=== PATIENT | female | born 1955 ===

== ENCOUNTER → 2021-12-13 10:16 | Outpatient (BNVA) | payer MEDICARE, OTHER, SELFPAY | PROVIDERS: PCP Internal Medicine; Visit Provider Internal Medicine Rheumatology | DX: M05.9 Rheumatoid arthritis with rheumatoid factor, unspecified (principal); M81.0 Age-related osteoporosis without current pathological fracture; M17.12 Unilateral primary osteoarthritis, left knee; K21.9 Gastro-esophageal reflux disease without esophagitis; Z79.899 Other long term (current) drug therapy | CPT/HCPCS: 99212 ==

== ENCOUNTER → 2022-04-17 09:29 | Outpatient (BNVA) | payer MEDICARE, OTHER, SELFPAY | PROVIDERS: PCP Internal Medicine; Visit Provider Internal Medicine Rheumatology | DX: M05.9 Rheumatoid arthritis with rheumatoid factor, unspecified (principal); M17.0 Bilateral primary osteoarthritis of knee; Z79.899 Other long term (current) drug therapy | CPT/HCPCS: 99212 ==

== ENCOUNTER 2022-05-14 10:38 | Outpatient (REF) | payer MEDICARE, OTHER, SELFPAY ==
[2022-05-14 11:11] LABS: MANUAL DIFF FLAG NO
[2022-05-14 11:44] LABS: Basophils Percent Auto 0.7 % (0-2); Eosinophils Absolute Auto 0.1 X10*3/uL (0.0-0.4); Eosinophils Percent Auto 1.3 % (0-4); Hematocrit 37.7 % (37.0-47.0); Hemoglobin 12.2 g/dl (12.0-16.0); Imm Gran Abs Auto 0.01 X10*3/uL (0.00-0.03); Imm Gran Pct Auto 0.2 % (0.0-0.4); Lymphocytes Absolute Auto 1.2 X10*3/uL (1.2-4.9); Lymphocytes Percent Auto 26.9 % (20-40); Mean Corpuscular HGB Conc 32.4 g/dl (31.0-35.0); Mean Corpuscular Hemoglobin 26.2 pg (27.0-33.0); Mean Corpuscular Volume 81.1 fL (80.0-98.0); Monocytes Absolute Auto 0.3 X10*3/uL (0.1-1.2); Monocytes Percent Auto 6.7 % (2-11); Neutrophils Absolute Auto 2.9 x10*3/uL (2.0-8.3); Neutrophils Percent Auto 64.2 % (45-73); Platelet Count 264 X10*3/uL (160-400); Red Blood Count 4.65 X10*6/uL (4.20-5.50); Red Cell Distribution Width 14.1 % (11.0-16.0); White Blood Count 4.5 X10*3/uL (4.8-10.8)
[2022-05-14 12:19] LABS: C Reactive Protein 0.49 mg/dL (< or = 0.50)
[2022-05-14 12:20] LABS: Erythrocyte Sedimentation Rate 29 MM/HR (0-20)
[2022-05-17 00:42] LABS: TS Negative Control Passed; TS Panel A 0; TS Panel B 0; TS Positive Control Passed; TSpotTB Negative (Negative)
== END 2022-05-14 10:39 | disposition home or self-care (01) ==
LOC: HO.LAB 10:38
PROVIDERS: PCP Internal Medicine; Visit Provider Internal Medicine Rheumatology
DX: Z11.1 Encounter for screening for respiratory tuberculosis (principal); M05.9 Rheumatoid arthritis with rheumatoid factor, unspecified; Z79.899 Other long term (current) drug therapy
CPT/HCPCS: 36415; 85025; 85652; 86140; 86481

== ENCOUNTER → 2022-10-24 08:26 | Outpatient (BNVA) | payer MEDICARE, OTHER, SELFPAY | PROVIDERS: PCP Internal Medicine; Visit Provider Internal Medicine Rheumatology | DX: M05.9 Rheumatoid arthritis with rheumatoid factor, unspecified (principal); D64.9 Anemia, unspecified; Z96.651 Presence of right artificial knee joint; Z92.89 Personal history of other medical treatment; Z79.899 Other long term (current) drug therapy | CPT/HCPCS: 36415; 85025; 85652; 86140; 99212 ==

== ENCOUNTER 2022-10-24 09:10 | Outpatient (REF) | payer MEDICARE, OTHER, SELFPAY ==
[2022-10-24 10:35] LABS: MANUAL DIFF FLAG NO
[2022-10-24 10:41] LABS: Basophils Percent Auto 0.6 % (0-2); Eosinophils Absolute Auto 0.1 X10*3/uL (0.0-0.4); Eosinophils Percent Auto 1.8 % (0-4); Imm Gran Abs Auto 0.01 X10*3/uL (0.00-0.03); Imm Gran Pct Auto 0.2 % (0.0-0.4); Lymphocytes Absolute Auto 1.7 X10*3/uL (1.2-4.9); Lymphocytes Percent Auto 34.4 % (20-40); Mean Corpuscular HGB Conc 31.4 g/dl (31.0-35.0); Mean Corpuscular Hemoglobin 25.8 pg (27.0-33.0); Mean Corpuscular Volume 82.2 fL (80.0-98.0); Mean Platelet Volume 10.5 fL (9.4-12.3); Monocytes Absolute Auto 0.3 X10*3/uL (0.1-1.2); Monocytes Percent Auto 5.8 % (2-11); Neutrophils Absolute Auto 2.9 x10*3/uL (2.0-8.3); Neutrophils Percent Auto 57.2 % (45-73); Platelet Count 325 X10*3/uL (160-400); Red Blood Count 4.26 X10*6/uL (4.20-5.50); Red Cell Distribution Width 14.6 % (11.0-16.0)
[2022-10-24 10:54] LABS: C Reactive Protein 0.42 mg/dL (< or = 0.50)
[2022-10-24 11:18] LABS: Erythrocyte Sedimentation Rate 45 MM/HR (0-20)
== END 2022-10-24 09:11 | disposition home or self-care (01) ==
LOC: HO.10HDL 09:10
PROVIDERS: Visit Provider Internal Medicine Rheumatology
DX: Z13.89 Encounter for screening for other disorder (principal)
CPT/HCPCS: 36415; 85025; 85652; 86140

== ENCOUNTER 2022-10-26 10:01 | Outpatient (REF) | payer MEDICARE, OTHER, SELFPAY ==
[2022-10-28 23:54] LABS: TS Negative Control Passed; TS Panel A 0; TS Panel B 0; TS Positive Control Passed; TSpotTB Negative (Negative)
== END 2022-10-26 10:02 | disposition home or self-care (01) ==
LOC: HO.10HDL 10:01
PROVIDERS: Visit Provider Internal Medicine Rheumatology
DX: M05.9 Rheumatoid arthritis with rheumatoid factor, unspecified (principal); Z79.899 Other long term (current) drug therapy
CPT/HCPCS: 36415; 86481

== ENCOUNTER 2023-04-24 09:31 | Outpatient (AMB) | payer MEDICARE, OTHER, SELFPAY ==
[2023-04-24 10:02] VITALS: BP 126/83; PULSE 73; RESP 17; TEMP 36.2; O2SAT 98; BMI 29.8
--- NOTE | 2023-04-24 10:02 | AM.OFFVISNUR ---
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: No Allergies amoxicillin Allergy (Intermediate, Verified 04/24/23 10:05) Rash Medication List - Last Reconciled 04/24/23 by Paty Copeland RN carboxymethylcellulose sodium 0.5% (Refresh Tears) 1 drp ophthalmic (eye) .every 2 hours cetirizine 10 mg PO DAILY cyclosporine 0.05% (Restasis) 1 drp ophthalmic (eye) Q12H ergocalciferol (vitamin D2) 1,250 mcg PO .every month etanercept (Enbrel SureClick) 50 mg subcut QWEEK ofloxacin 0.3% drps ophthalmic (eye) olopatadine 0.1% 1 drp ophthalmic (eye) .right eye omeprazole 20 mg PO BID prednisolone acetate 1% drps ophthalmic (eye) triamcinolone acetonide 0.025% 1 appl topical DAILY venlafaxine ER 300 mg PO DAILY Coding
[2023-04-24 10:14] VITALS: BMI 29.8
--- NOTE | 2023-04-24 10:14 | MHC.OFFVIS ---
Intake Vital Signs 04/24/23 10:02 04/24/23 10:14 Height 5 ft Weight 152 lb 8.958 oz BMI 29.8 29.8 BP 126/83 Position Sitting Respiration 17 Pulse 73 Pulse Source Pulse Oximeter Temp 97.2 F Temp Source Skin Pulse Oximetry (%) 98 Oxygen Delivery Method Room Air Intake Visit Reasons: ra Allergies amoxicillin Allergy (Intermediate, Verified 04/24/23 10:05) Rash Medication List - Last Reconciled 04/24/23 by Paty Copeland, RN carboxymethylcellulose sodium 0.5% (Refresh Tears) 1 drp ophthalmic (eye) .every 2 hours cetirizine 10 mg PO DAILY cyclosporine 0.05% (Restasis) 1 drp ophthalmic (eye) Q12H ergocalciferol (vitamin D2) 1,250 mcg PO .every month etanercept (Enbrel SureClick) 50 mg subcut QWEEK ofloxacin 0.3% drps ophthalmic (eye) olopatadine 0.1% 1 drp ophthalmic (eye) .right eye omeprazole 20 mg PO BID prednisolone acetate 1% drps ophthalmic (eye) triamcinolone acetonide 0.025% 1 appl topical DAILY venlafaxine ER 300 mg PO DAILY HPI HPI Comments History of Present Illness Details The patient returns for evaluation of her rheumatoid arthritis. She remains on Enbrel 50 mg weekly. In general that is working fairly well for her joint pains. She is doing much better since having the knee replacement earlier this year. She is having some dry coughing, mostly at night. This is associated with postnasal drip. She does take occasional Benadryl for this. In the past she had been on regular doses of Zyrtec. She recently had some eye surgery for a retinal hole. She is pleased with the results on that. She isstill on some eyedrops and has follow-up appointment in Ophthalmology. 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 Osteoarthritis of left knee GERD (gastroesophageal reflux disease) Depression Chronic persistent hepatitis History of positive PPD History of wrist fracture Osteoporosis Seropositive rheumatoid arthritis Surgical History (Updated 10/24/22 @ 08:39 by BRYNN Victor) Hx of hand surgery H/O total knee replacement Social History Household Members Other:: Living with sister Housing: House Are you a primary pediatric critical care nurse to a significant other at home: Yes Do you presently have visiting nurse or other home services: No 75 years or older and lives alone: No Alcohol intake: never Patient Tobacco Use Status: Never used Tobacco e-Cigarette/Vaping Use: Never Used service: No Current occupational status: retired Review of Systems Const Details: Negative for appetite change, weight change, fever, chills, malaise and fatigue Card Details: Negative chest pain, edema and syncope Resp Details: Negative for SOB, cough and wheezing GI Details: Negative indigestion/heartburn, nausea, abdominal pain, bowel changes, diarrhea, constipation and bloody stool. Skin/Breast Details: Negative for itching, rash, hives, Raynaud's symptoms, sun sensitivity, and skin cancer Psych Details: She remains on venlafaxine for her anxiety. She wants to continue it but is having difficulty obtaining a from the prior her psychiatrist apparently retired. Pierce/Lymph Details: Negative for excessive bruising or bleeding. Physical Exam Vital Signs: Last Vital Signs Temp 97.2 F 04/24/23 10:02 Pulse 73 04/24/23 10:02 Resp 17 04/24/23 10:02 BP 126/83 04/24/23 10:02 Pulse Ox 98 04/24/23 10:02 Oxygen Delivery Method Room Air 04/24/23 10:02 BMI result Body Mass Index 29.8 APPEARANCE: Patient in no acute distress . EXTREMITIES: No edema, no calf tenderness, normal peripheral pulses. SKIN: No inflammatory or neoplastic lesions. Normal color and turgor ??JOINT EXAM: Cervical Spine:.? Full range of motion without pain; no tenderness. Thoracic Spine:.? No scoliosis.? No tenderness on palpation. Lumbar Spine:.? Alignment normal.? Mild pain with extremes of flexion extension but no tenderness. Chest Wall:.? No tenderness, swelling, increased warmth or erythema. Hands:? Right:? There is thickening across the MCP joints 2 through 5.? These are not tender however.? She has some flexion deformity at the MCPs.? There is evidence for previous surgery over the 2nd and 3rd MCP region.? There is some slight thickening without tenderness at the 2nd and 3rd PIP joints.? There is no sensory loss or thenar atrophy.? Left:? Normal pain-free range of motion without tenderness, swelling, increased warmth or erythema.? No thenar atrophy or sensory loss. Wrists:? Right: no pain with flexion extension is 75 degrees and some slight dorsal tenderness but no redness or swelling.? Left:? The left wrist has been fused and there is no motion possible.? No tenderness or swelling.? Surgical scar seems well healed. Elbows:. Normal pain-free range of motion without tenderness, swelling, increased warmth or erythema. Shoulders:.?? Full range of motion without pain. No tenderness, weakness, swelling, increased warmth or erythema. Hips:.? Full range of motion without pain. Hip bursa:.? No tenderness. Knees:.? Right:? nod discomfort at full extension. She flexes beyond 100 degrees without pain. There is a large anterior well-healed scar. No tenderness or induration around the scar. Left:? Normal pain-free range of motion with mild patellofemoral crepitus and some slight medial tenderness but no effusion, soft tissue swelling, increased warmth or erythema.? Ankles:.? Normal pain-free range of motion without tenderness, swelling, increased warmth or erythema. Feet:? Normal pain-free range of motion without tenderness, swelling, increased warmth or erythema. 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 She is not having any side effects so we will continue medications as above. I told her to get back on the Zyrtec and take it on a regular basis to see if that would cut out her allergic symptoms. If those symptoms continue she would need further follow-up in primary care. We would aim to see her back in about 3 months. 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
== END 2023-04-24 10:26 | disposition home or self-care (01) ==
PROVIDERS: PCP Internal Medicine; Visit Provider Internal Medicine Rheumatology
DX: M05.79 Rheumatoid arthritis with rheumatoid factor of multiple sites without organ or systems involvement (principal); Z79.899 Other long term (current) drug therapy; Z96.651 Presence of right artificial knee joint
CPT/HCPCS: 99213

== ENCOUNTER → 2023-04-24 09:31 | Outpatient (BNVA) | payer MEDICARE, OTHER, SELFPAY | PROVIDERS: PCP Internal Medicine; Visit Provider Internal Medicine Rheumatology | DX: M05.9 Rheumatoid arthritis with rheumatoid factor, unspecified (principal); Z96.651 Presence of right artificial knee joint; Z79.899 Other long term (current) drug therapy | CPT/HCPCS: 99212 ==

== ENCOUNTER 2023-07-30 09:18 | Outpatient (AMB) | payer MEDICARE, OTHER, SELFPAY ==
[2023-07-30 09:23] VITALS: BP 108/62; PULSE 85; RESP 15; TEMP 36.4; O2SAT 97; BMI 30.3
--- NOTE | 2023-07-30 09:23 | MHC.OFFVIS ---
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: No Allergies amoxicillin Allergy (Intermediate, Verified 07/30/23 09:24) Rash Medication List - Last Reconciled 07/30/23 by Paty Copeland RN carboxymethylcellulose sodium 0.5% (Refresh Tears) 1 drp ophthalmic (eye) .every 2 hours cetirizine 10 mg PO DAILY cyclosporine 0.05% (Restasis) 1 drp ophthalmic (eye) Q12H ergocalciferol (vitamin D2) 1,250 mcg PO .every month etanercept (Enbrel SureClick) 50 mg subcut QWEEK ofloxacin 0.3% drps ophthalmic (eye) olopatadine 0.1% 1 drp ophthalmic (eye) .right eye omeprazole 20 mg PO BID prednisolone acetate 1% drps ophthalmic (eye) triamcinolone acetonide 0.025% 1 appl topical DAILY venlafaxine ER 300 mg PO DAILY HPI HPI Comments History of Present Illness Details The patient returns for evaluation of her rheumatoid arthritis. She remains on Enbrel 50 mg weekly. She continues to improve in terms of her walking after her knee replacement. She thinks otherwise joints are doing okay except for the right hand. She notes some catching and discomfort around the 4th flexor tendon and 4th finger in that hand. She has had some surgery on the palm of the hand as well as MCP joint replacements. This was done years ago I believe at [facility]. She is not sure which surgeon. I think it was probably doctor Sushant as she says he is now retired. Two or 3 days ago she was lifting some boxes and developed some right lumbar pain. She admits she was picking the box up in an awkward position because of her knee problems. The pain does not radiate down the leg. It seems to get better when she is resting. 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 There is some daytime fatigue but no daytime sleepiness. Negative for appetite change, weight change, fever, chills, malaise and fatigue Eyes Details: In March she had a right retinal hole repaired. She says vision is improving. Negative for vision change, dry eyes,headaches and dizziness Card Details: Negative chest pain, edema and syncope Resp Details: Negative for SOB, cough and wheezing GI Details: Negative indigestion/heartburn, nausea, abdominal pain, bowel changes, diarrhea, constipation and bloody stool. Psych Details: Negative for anxiety, depression and stress Pierce/Lymph Details: Negative for excessive bruising or bleeding. Physical Exam Vital Signs: Last Vital Signs Temp 97.5 F 07/30/23 09:23 Pulse 85 07/30/23 09:23 Resp 15 07/30/23 09:23 BP 108/62 07/30/23 09:23 Pulse Ox 97 07/30/23 09:23 Oxygen Delivery Method Room Air 07/30/23 09:23 BMI result Body Mass Index 30.3 APPEARANCE: Patient in no acute distress EYES no redness, pupils equal and reactive to light, eyelids normal JOINT EXAM: Cervical Spine:? Full range of motion without pain; no tenderness. Thoracic Spine:? No scoliosis.? No tenderness on palpation. Lumbar Spine:? Alignment normal.? Mild pain with flexion at 60 degrees. There is some right paraspinal muscle tenderness. No tenderness over the vertebral spines. Straight leg raising is negative. Lower extremity reflexes and strength seem normal. Chest Wall:? No tenderness, swelling, increased warmth or erythema. Hands:? Right:? There is thickening across the MCP joints 2 through 5.? There is some mild tenderness along the 4th flexor tendon where there is some scar tissue. I believe is also been some surgery scars on the palm of the hand in that region. There is no fluctuance or redness. There is no tenderness over the dorsum of the MCPs but there is some ulnar deviation and flexion deformity evident.? There is some slight thickening without tenderness at the 2nd and 3rd PIP joints.? There is no sensory loss or thenar atrophy.? Left:? Normal pain-free range of motion without tenderness, swelling, increased warmth or erythema.? No thenar atrophy or sensory loss. Wrists:? Right: no pain with flexion extension is 75 degrees and some slight dorsal tenderness but no redness or swelling.? Left:? The left wrist has been fused and there is no motion possible.? No tenderness or swelling.? Surgical scar seems well healed. Elbows:. Normal pain-free range of motion without tenderness, swelling, increased warmth or erythema. Shoulders:.?? Full range of motion without pain. No tenderness, weakness, swelling, increased warmth or erythema. Hips:.? Full range of motion without pain. Hip bursa:.? No tenderness. Knees:.? Right:? Slight discomfort at full extension. She flexes beyond 100 degrees without pain. There is a large anterior well-healed scar. No tenderness or induration around the scar. Left:? Normal pain-free range of motion with mild patellofemoral crepitus and some slight medial tenderness but no effusion, soft tissue swelling, increased warmth or erythema.? Ankles:.? Normal pain-free range of motion without tenderness, swelling, increased warmth or erythema. Feet:? Normal pain-free range of motion without tenderness, swelling, increased warmth or erythema. ? 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 I think the discomfort at the right hand could be from some flexor tenosynovitis or scar tissue from previous surgery. I encouraged her to follow up with the previous surgical group that had worked on her hand. I will request a referral to [facility]. She has some lumbar pain that sounds like a muscle injury. Acetaminophen and local heat are recommended. She seems to be tolerating the Enbrel and it is helping so we will continue as above. CBC and acute phase reactants are requested. A follow-up in 4 or 5 months is recommended. Orders: Orders Erythrocyte Sedimentation Rate Today M05.9 - Rheumatoid arthritis with rheumatoid factor, unspecified, Z79.899 - Other [facility] (current) drug therapy C Reactive Protein Today M05.9 - Rheumatoid arthritis with rheumatoid factor, unspecified, Z79.899 - Other technician terminal and repeater (current) drug therapy Complete Blood Count Auto Diff Today M05.9 - Rheumatoid arthritis with rheumatoid factor, unspecified, Z79.899 - Other technician terminal and repeater (current) drug therapy Referrals Orthopedics Referral M05.9 - Rheumatoid arthritis with rheumatoid factor, unspecified, Z98.890 - Other specified postprocedural states Coding Level of Care Code Est Pt Level 3 (82231) Diagnoses Hx of hand surgery Z98.890 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
== END 2023-07-30 10:24 | disposition home or self-care (01) ==
PROVIDERS: PCP Internal Medicine; Visit Provider Internal Medicine Rheumatology
DX: M05.79 Rheumatoid arthritis with rheumatoid factor of multiple sites without organ or systems involvement (principal); Z98.890 Other specified postprocedural states; Z79.899 Other long term (current) drug therapy
CPT/HCPCS: 99213

== ENCOUNTER → 2023-07-30 09:18 | Outpatient (BNVA) | payer MEDICARE, OTHER, SELFPAY | PROVIDERS: PCP Internal Medicine; Visit Provider Internal Medicine Rheumatology | DX: M05.9 Rheumatoid arthritis with rheumatoid factor, unspecified (principal); Z98.890 Other specified postprocedural states; Z79.899 Other long term (current) drug therapy | CPT/HCPCS: 99212 ==

== ENCOUNTER 2023-10-31 09:11 | Outpatient (AMB) | payer MEDICARE, OTHER, SELFPAY ==
[2023-10-31 09:39] VITALS: BP 120/80; PULSE 84; TEMP 36.2; O2SAT 95; BMI 30.4
--- NOTE | 2023-10-31 09:39 | A.OFFVIS_ITS ---
Intake Vital Signs 10/31/23 09:39 Height 5 ft Weight 155 lb 6.814 oz BMI 30.4 BP 120/80 Blood Pressure Location Rt brachial Position Sitting Pulse 84 Pulse Source Pulse Oximeter Temp 97.2 F Temp Source Skin Pulse Oximetry (%) 95 Oxygen Delivery Method Room Air Intake Visit Reasons: RA/CONFIRMED Intake Note: Patient last seen 07/30/[address] Daniel, presents today for follow up and test results. 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 She remains on Enbrel 50 mg weekly. She continues to improve in terms of her walking after her knee replacement and now she does not use her cane. She thinks otherwise joints are doing okay except for the 4th finger on right hand. She notes some catching and discomfort around the 4th flexor tendon and 4th finger in that hand. She has had some surgery on the palm of the hand as well as MCP joint replacements. This was done years ago but she is not sure which surgeon. She has not bothered too much by her hand or her lower back pain. She keeps very active and does not let the discomfort hinder her from her ADLs or doing what she wants to do. 07/30/2023 Dr. Daniel: The patient returns for evaluation of her rheumatoid arthritis. She remains on Enbrel 50 mg weekly. She continues to improve in terms of her walking after her knee replacement. She thinks otherwise joints are doing okay except for the right hand. She notes some catching and discomfort around the 4th flexor tendon and 4th finger in that hand. She has had some surgery on the palm of the hand as well as MCP joint replacements. This was done years ago I believe at [facility]. She is not sure which surgeon. I think it was probably doctor Canchola as she says he is now retired. Two or 3 days ago she was lifting some boxes and developed some right lumbar pain. She admits she was picking the box up in an awkward position because of her knee problems. The pain does not radiate down the leg. It seems to get better when she is resting. [facility] Medical History (Updated 10/31/23 @ 09:54 by RONY Caal-BC) Hypovitaminosis D intermediate current use of immunosuppressive drug Osteoarthritis of left knee GERD (gastroesophageal reflux disease) Depression Chronic persistent hepatitis History of positive PPD History of wrist fracture Osteoporosis Seropositive rheumatoid arthritis Surgical History Hx of hand surgery H/O total knee replacement Social History Household Members Other:: Living with sister Housing: House Are you a primary occasional caregiver to a significant other at home: Yes Do you presently have visiting nurse or other home services: No 75 years or older and lives alone: No Alcohol intake: never Patient Tobacco Use Status: Never used Tobacco e-Cigarette/Vaping Use: Never Used service: No Current occupational status: retired Review of Systems Const All systems reviewed & are unremarkable except as noted in HPI and below Physical Exam Vital Signs: Last Vital Signs Temp 97.2 F 10/31/23 09:39 Pulse 84 10/31/23 09:39 BP 120/80 10/31/23 09:39 Pulse Ox 95 10/31/23 09:39 Oxygen Delivery Method Room Air 10/31/23 09:39 BMI result Body Mass Index 30.4 APPEARANCE: Patient in no acute distress EYES no redness, pupils equal and reactive to light, eyelids normal JOINT EXAM: Cervical Spine:? Full range of motion without pain; no tenderness. Thoracic Spine:? No scoliosis.? No tenderness on palpation. Lumbar Spine:? Alignment normal.? Mild pain with flexion at 60 degrees. There is some right paraspinal muscle tenderness. No tenderness over the vertebral spines. Straight leg raising is negative. Lower extremity reflexes and strength seem normal. Chest Wall:? No tenderness, swelling, increased warmth or erythema. Hands:? Right:? There is thickening across the MCP joints 2 through 5.? There is some mild tenderness along the 4th flexor tendon where there is some scar tissue. There is surgical scars on the palm of the hand in that region. There is no fluctuance or redness. There is no tenderness over the dorsum of the MCPs but there is some ulnar deviation and flexion deformity evident.? There is some slight thickening without tenderness at the 2nd and 3rd PIP joints.? There is no sensory loss or thenar atrophy.? Left:? Normal pain-free range of motion without tenderness, swelling, increased warmth or erythema.? No thenar atrophy or sensory loss. Wrists:? Right: no pain with flexion extension is 75 degrees and some slight dorsal tenderness but no redness or swelling.? Left:? The left wrist has been fused and there is no motion possible.? No tenderness or swelling.? Surgical scar seems well healed. Elbows:. Normal pain-free range of motion without tenderness, swelling, increased warmth or erythema. Shoulders:.?? Full range of motion without pain. No tenderness, weakness, swelling, increased warmth or erythema. Hips:.? Full range of motion without pain. Hip bursa:.? No tenderness. Knees:.? Right:? Occasional discomfort at full extension. She flexes beyond 100 degrees without pain. There is a large anterior well-healed scar. No tenderness or induration around the scar. Left:? Normal pain-free range of motion with mild patellofemoral crepitus and some slight medial tenderness but no effusion, soft tissue swelling, increased warmth or erythema.? Ankles:.? Normal pain-free range of motion without tenderness, swelling, increased warmth or erythema. Feet:? Normal pain-free range of motion without tenderness, swelling, increased warmth or erythema. ? Results Reviewed Results Reviewed: Laboratory Tests 10/24/22 09:14 WBC 5.0 Hgb 11.0 L ESR 45 H C-Reactive Protein 0.42 10/18/2023: CRP 0.48 SED rate 62 - Respiratory infection last three weeks. 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 There is no discomfort at the right hand but the 4th finger sometimes gets stuck but it does not impair function per patient. This is possibly from scar tissue from previous surgery. She is not eager to follow up with the previous surgical group at this time. From prior labs from October 2022 she had a sed rate of 45 which is now increased to 62 on 10/18/2023. Patient said she has not taken her Enbrel for the last 3 weeks given a respiratory illness. She will restart next week. Other than the she seems to be tolerating the Enbrel and it is helping so we will continue Enbrel 50 mg weekly. # hypovitaminosis D: I think her vitamin-D levels are now adequate and she can go on a lower daily amount for maintenance so I will give a new prescription. #intermission coordinator use: She denies current respiratory infections. She says this is once in a while cold. We will repeat monitoring labs for CBC and acute phase reactants 1 week before her next visit follow-up in 4 months I spent 25 minutes reviewing history evaluating patient and documenting. Orders: Orders Erythrocyte Sedimentation Rate Today E55.9 - Vitamin D deficiency, unspecified, M05.9 - Rheumatoid arthritis with rheumatoid factor, unspecified, Z79.899 - Other retirement (current) drug therapy Complete Blood Count Auto Diff Today E55.9 - Vitamin D deficiency, unspecified, M05.9 - Rheumatoid arthritis with rheumatoid factor, unspecified, Z79.899 - Other retirement (current) drug therapy Comprehensive Met. Panel Today E55.9 - Vitamin D deficiency, unspecified, M05.9 - Rheumatoid arthritis with rheumatoid factor, unspecified, Z79.899 - Other intermission coordinator (current) drug therapy C Reactive Protein Today E55.9 - Vitamin D deficiency, unspecified, M05.9 - Rheumatoid arthritis with rheumatoid factor, unspecified, Z79.899 - Other retirement (current) drug therapy Medications: New cholecalciferol (vitamin D3) 50 mcg PO DAILY 90 caps 1RF E55.9 - Vitamin D deficiency, unspecified Coding Level of Care Code Est Pt Level 3 (19179) Diagnoses Hx of hand surgery Z98.890 intermediate current use of immunosuppressive drug Z79.899 Seropositive rheumatoid arthritis M05.9 Hypovitaminosis D E55.9
== END 2023-10-31 10:13 | disposition home or self-care (01) ==
PROVIDERS: PCP Internal Medicine; Visit Provider Nurse Practitioner Family
DX: M05.79 Rheumatoid arthritis with rheumatoid factor of multiple sites without organ or systems involvement (principal); Z79.899 Other long term (current) drug therapy; E55.9 Vitamin D deficiency, unspecified
CPT/HCPCS: 99214

== ENCOUNTER → 2023-10-31 09:11 | Outpatient (BNVA) | payer MEDICARE, OTHER, SELFPAY | PROVIDERS: PCP Internal Medicine; Visit Provider Nurse Practitioner Family | DX: M05.9 Rheumatoid arthritis with rheumatoid factor, unspecified (principal); E55.9 Vitamin D deficiency, unspecified; Z98.890 Other specified postprocedural states; Z79.899 Other long term (current) drug therapy | CPT/HCPCS: 99212 ==

== ENCOUNTER 2024-03-16 08:27 | Outpatient (AMB) | payer MEDICARE, OTHER, SELFPAY ==
[2024-03-16 08:29] VITALS: BP 122/68; PULSE 88; O2SAT 98; BMI 29.7
--- NOTE | 2024-03-16 08:29 | MHC.OFFVIS ---
Vital Signs 03/16/24 08:29 Height 5 ft Weight 151 lb 14.376 oz BMI 29.7 BP 122/68 Blood Pressure Location Lt brachial Position Sitting Pulse 88 Pulse Source Pulse Oximeter Pulse Oximetry (%) 98 Oxygen Delivery Method Room Air Intake Visit Reasons: RA/Labs before next visit/LM Intake Note: Patient is here for follow up on RA She got her labs done in [place], we have not got the labs yet. I will call. Allergies amoxicillin Allergy (Intermediate, Verified 03/16/24 08:35) Rash Medication List - Last Reconciled 03/16/24 by Sera Barrios MD carboxymethylcellulose sodium 0.5% (Refresh Tears) 1 drp ophthalmic (eye) .every 2 hours cetirizine 10 mg PO DAILY cholecalciferol (vitamin D3) 50 mcg PO DAILY cyclobenzaprine 5 - 10 mg (0.5 - 1 x 10 mg) PO Q8H PRN cyclosporine 0.05% (Restasis) 1 drp ophthalmic (eye) Q12H ergocalciferol (vitamin D2) 1,250 mcg PO .every month etanercept (Enbrel SureClick) 50 mg subcut QWEEK ofloxacin 0.3% drps ophthalmic (eye) olopatadine 0.1% 1 drp ophthalmic (eye) .right eye omeprazole 20 mg PO BID prednisolone acetate 1% drps ophthalmic (eye) triamcinolone acetonide 0.025% 1 appl topical DAILY venlafaxine ER 300 mg PO DAILY HPI Comments Details: This is a 68-year-old female with seropositive deforming RA who presents for follow-up. She remains on Enbrel weekly. She states that she is doing about the same overall. No he has joint pain or swelling. She gets minimal pain at the back of her right ankle when she presses it but it is very minimal without swelling. Denies any recent illnesses. She states that her sleep has not been great, she sleeps for 2 hours then wakes up. She used to see a therapist and a psychiatrist regularly in the past at [place], but there were no longer any specialists at [place] and she has not been able to see a therapist or a psychiatrist since then. [facility] Medical History Hypovitaminosis D [facility] current use of immunosuppressive drug Osteoarthritis of left knee GERD (gastroesophageal reflux disease) Depression Chronic persistent hepatitis History of positive PPD History of wrist fracture Osteoporosis Seropositive rheumatoid arthritis Surgical History Hx of hand surgery H/O total knee replacement Social History Household Members Other:: Living with sister Housing: House Are you a primary respiratory care instructor to a significant other at home: Yes Do you presently have visiting nurse or other home services: No 75 years or older and lives alone: No Alcohol intake: never Patient Tobacco Use Status: Never used Tobacco e-Cigarette/Vaping Use: Never Used service: No Current occupational status: retired Review of Systems Musc Reports arthralgias, Denies joint swelling and Denies stiffness Physical Exam Vital Signs: Last Vital Signs Pulse 88 03/16/24 08:29 BP 122/68 03/16/24 08:29 Pulse Ox 98 03/16/24 08:29 Oxygen Delivery Method Room Air 03/16/24 08:29 BMI result Body Mass Index 29.7 Const General: cooperative, healthy appearing and comfortable Nutritional Appearance: overweight Orientation/consciousness: patient oriented x3 Limitations: no limitations HEENT Head: Yes normocephalic and Yes atraumatic Mouth: moist mucous membranes Resp Effort & Inspection: normal respiratory effort and able to speak in complete sentences Auscultation: clear to auscultation bilaterally Cardio Rate: regular rate Skin General skin exam: no rashes or lesions noted Neuro General: patient oriented x3 Extrem Other: Hands: Right, There is thickening across the MCP joints 2 through 5.? There is some mild tenderness along the 4th flexor tendon where there is some scar tissue. There is surgical scars on the palm of the hand in that region. There is no fluctuance or redness. There is no tenderness over the dorsum of the MCPs but there is some ulnar deviation and flexion deformity evident.? There is some slight thickening without tenderness at the 2nd and 3rd PIP joints.? There is no sensory loss or thenar atrophy.? Left:? Normal pain-free range of motion without tenderness, swelling, increased warmth or erythema.? No thenar atrophy or sensory loss. Wrists:? Right: no pain with flexion extension is 75 degrees and some slight dorsal tenderness but no redness or swelling.? Left:? The left wrist has been fused and there is no motion possible.? No tenderness or swelling.? Surgical scar seems well healed. Normal range of motion of elbows and shoulders without pain No ankle swelling or tenderness bilaterally Negative MTP squeeze test bilaterally No active synovitis otherwise Assessment & Plan Assessment & Plan (1) Seropositive rheumatoid arthritis: Comment: Did MTX prior 2012 - Enbrel started 06/30: R 3- MCP implants Code(s): M05.9 - Rheumatoid arthritis with rheumatoid factor, unspecified Category: Medical Plan: This is a 68-year-old female with seropositive deforming RA who presents for follow-up. This is her 1st visit with me. She used to follow-up with Dr. Daniel. She remains on Enbrel 50 mg weekly. 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 Patient fully aware. Advised patient to seek medical care [facility] if patient has an infection and advised patient to stop the medication until the infection is resolved. Plan I spent 24 minutes reviewing patient's chart, evaluating patient, ordering diagnostic workup, counseling patient and documenting in the chart Orders: Orders Erythrocyte Sedimentation Rate 6 Months M05.9 - Rheumatoid arthritis with rheumatoid factor, unspecified Hepatitis A,B,C Profile 6 Months Z11.59 - Encounter for screening for other viral diseases Complete Blood Count Auto Diff 6 Months M05.9 - Rheumatoid arthritis with rheumatoid factor, unspecified Comprehensive Met. Panel 6 Months M05.9 - Rheumatoid arthritis with rheumatoid factor, unspecified C Reactive Protein 6 Months M05.9 - Rheumatoid arthritis with rheumatoid factor, unspecified T Spot TB 6 Months Z11.7 - Encounter for testing for latent tuberculosis infection Cyclic Citrullinated Peptide 6 Months M05.9 - Rheumatoid arthritis with rheumatoid factor, unspecified Coding Level of Care Code Est Pt Level 4 (85242) Diagnoses Seropositive rheumatoid arthritis M05.9 [facility] current use of immunosuppressive drug Z79.899
== END 2024-03-16 09:06 | disposition home or self-care (01) ==
PROVIDERS: PCP Internal Medicine; Visit Provider Student in an Organized Health Care Education/Training Program
DX: M05.79 Rheumatoid arthritis with rheumatoid factor of multiple sites without organ or systems involvement (principal); Z79.899 Other long term (current) drug therapy
CPT/HCPCS: 99214

== ENCOUNTER → 2024-03-16 08:27 | Outpatient (BNVA) | payer MEDICARE, OTHER, SELFPAY | PROVIDERS: PCP Internal Medicine; Visit Provider Student in an Organized Health Care Education/Training Program | DX: M05.9 Rheumatoid arthritis with rheumatoid factor, unspecified (principal); Z11.7 Encounter for testing for latent tuberculosis infection; Z11.59 Encounter for screening for other viral diseases; Z79.899 Other long term (current) drug therapy | CPT/HCPCS: 99212 ==

== ENCOUNTER 2024-12-15 07:56 | Outpatient (AMB) | payer MEDICARE, OTHER, SELFPAY ==
--- OUTSIDE RECORDS SUMMARY | 2024-12-15 08:00 | XMS_ITS ---
Author Name [facility] Organization Unknown History of Medication Use Medication Directions Dispensed Refills Start Date End Date [facility] clindamycin HCl 300 mg capsule TAKE 2 CAPSULES BY MOUTH 1 HOUR PRIOR TO DENTAL APPOINTMENT 4 completed acetaminophen 500 mg tablet TAKE TWO TABLETS BY MOUTH THREE TIMES A DAY 3 completed acetaminophen 500 mg tablet TAKE TWO TABLETS BY MOUTH THREE TIMES A DAY 3 completed clindamycin HCl 150 mg capsule TAKE 1 CAPSULE BY MOUTH EVERY 6 HOURS FOR 7 DAYS 3 completed gabapentin 300 mg capsule TAKE ONE CAPSULE BY MOUTH EVERY EVENING AT BEDTIME NEEDED 3 completed gabapentin 300 mg capsule TAKE ONE CAPSULE BY MOUTH EVERY EVENING AT BEDTIME NEEDED 3 completed ibuprofen 800 mg tablet TAKE 1 TABLET BY MOUTH EVERY 8 HOURS NEEDED FOR PAIN. MAX 4 TABLETS PER 24 HOURS 3 completed ibuprofen 800 mg tablet TAKE 1 TABLET BY MOUTH EVERY 8 HOURS NEEDED FOR PAIN. MAX 4 TABLETS PER 24 HOURS 3 completed Jantoven 1 mg tablet TAKE 6 TABLETS BY MOUTH EVERY DAY OR DIRECTED BY PHYSICIAN 3 completed ofloxacin 0.3 % eye drops INSTILL 1 DROP INTO THE RIGHT EYE 4 TIMES DAILY STARTING THREE DAYS PRIOR TO SURGERY AND CONTINUING 3 active prednisolone acetate 1 % eye drops,suspension INSTILL 1 DROP IN THE RIGHT EYE 1 TO 2 TIMES DAILY 3 active Stool Softener-Stimulant Laxative 8.6 mg-50 mg tablet TAKE TWO TABLETS BY MOUTH AT BEDTIME 3 completed Stool Softener-Stimulant Laxative 8.6 mg-50 mg tablet TAKE TWO TABLETS BY MOUTH AT BEDTIME 3 completed triamcinolone acetonide 0.025 % topical cream APPLY TO ARMS, TRUNK AND LEGS TWICE NEEDED FOR PRURITIS, DECREASE TO DAILY OR EVERY OTHER DAY SYMPTOMS IMPROVE 3 completed cyclobenzaprine 5 mg tablet TAKE ONE TABLET BY MOUTH THREE TIMES A DAY NEEDED FOR MUSCLE SPASMS active Enbrel SureClick 50 mg/mL (1 mL) subcutaneous pen injector 1 mL every week by sub-q route. active meloxicam 15 mg tablet TAKE ONE TABLET BY MOUTH EVERY DAY AFTER MEALS active ondansetron 8 mg disintegrating tablet DISSOLVE ONE TABLET BY MOUTH EVERY 8 HOURS NEEDED FOR NAUSEA AND VOMITING active prednisolone acetate 1 % eye drops,suspension 4 drops 4 times a day by ophthalmic route. active Allergies Allergen Reaction Severity Comment Documented Date Source Statu s AMOXICILLIN [facility] Problems Problem Status Onset Date Problem Type Date of Resoluti on Source History of right total knee replacement active 2023-04-29 ProblemAct [facility] Spasm active 2022-11-22 ProblemAct [facility] Ankle pain active 2024-08-13 ProblemAct [facility] E[facility] Postoperative pain active 2022-11-22 ProblemAct [facility] Right Achilles tendinitis active 2024-07-23 ProblemAct [facility] Encounters Encounter Type Encounter Reason Primary Diagnosis Location Date Ambulatory [facility] [place] 12/04/2024 Ambulatory [facility] [place] 11/09/2024 Ambulatory [facility] [place] 10/16/2024 Ambulatory [facility] [place] 10/05/2024 Amb[facility] [place] 09/11/2024 Amb[facility] [place] 08/28/2024 Ambulatory [facility] [place] 08/14/2024 Ambulatory [facility] [place] 08/13/2024 Ambulatory [facility] [place] 08/08/2024 Ambulatory [facility] [place] 08/07/2024 Ambulatory [facility] [place] 07/24/2024 Ambulatory [facility] [place] 07/23/2024 Ambulatory [facility] [place] 07/23/2024 Ambulatory [facility] [place] 07/23/2024 Ambulatory [facility] [place] 07/23/2024 [facility] [place] 07/02/2024 Amb[facility] [place] 07/02/2024 Ambulatory [facility] [place] 07/02/2024 Ambulatory [facility] [place] 07/02/2024 Ambulatory [facility] [place] 07/02/2024 Ambulatory [facility] [place] 03/08/2024 Ambulatory [facility] [place] 02/02/2024 Ambulatory [facility] [place] 11[facility]21/2023 Ambulatory [facility] [place] 11/20/2023 Ambulatory [facility] [place] 11/20/2023 Ambulatory [facility] [place] 11/20/2023 Ambulatory [facility] [place] 04/29/2023 Amb[facility] [place] 04/29/2023 Ambulatory [facility] [place] 03/28/2023 Ambulatory [facility] [place] 03/28/2023
--- OUTSIDE RECORDS SUMMARY | 2024-12-15 08:00 | XMS_ITS | Clinical Summary ---
Author Organization [facility] Address [address] [place] [address] Care Team Providers Care Manager Steel Name Role Phone Heather Luke MD Primary Care Provider [phone] Allergies Active Allergy Reactions Criticality Noted Date Comments Amoxicillin 04/20/2022 Medications Medication Sig Dispensed Refills Start Date End Date Status omeprazole (PriLOSEC) 20 MG capsule Take 20 mg by mouth 2 (two) times a day. 0 03/30/2022 Active ergocalciferol (VITAMIN D2) capsule 19931 units TAKE ONE CAPSULE BY MOUTH EVERY 28 DAYS 0 06/16/2022 Active Enbrel SureClick 50 MG/ML SOAJ 0 07/31/2022 Active venlafaxine (EFFEXOR-XR) 150 MG 24 hr capsule Take 1 capsule (150 mg total) by mouth 2 (two) times a day. 0 06/27/2022 Active clindamycin (CLEOCIN) 300 MG capsule Take 2 capsules 1 hour Prior to dental appointment 10 capsule 1 09/18/2022 Active acetaminophen (TYLENOL EXTRA STRENGTH) 500 MG tablet Take 2 tablets (1,000 mg total) by mouth 3 (three) times a day. 0 09/28/2017 Active ondansetron (ZOFRAN-ODT) 8 MG disintegrating tablet DISSOLVE ONE TABLET BY MOUTH EVERY 8 HOURS NEEDED FOR NAUSEA AND VOMITING 0 09/05/2022 Active warfarin (Jantoven) 1 MG tablet Take 6 tabs daily or as directed by physician 80 tablet 1 09/18/2022 Active gabapentin (NEURONTIN) 300 MG capsule Take 1 capsule (300 mg total) by mouth every night at bedtime as needed. 30 capsule 0 10/01/2022 Active methocarbamol (ROBAXIN) 750 MG tablet Take 1 tablet (750 mg total) by mouth 3 (three) times a day. 90 tablet 0 10/01/2022 Active oxyCODONE (ROXICODONE) 5 MG immediate release tablet 1-2 tabs p.o. every 6-8 hours as needed for pain. May fill for lesser quantity 30 tablet 0 10/02/2022 Active Active Problems Problem Noted Date Diagnosed Date Arthritis of knee, right 04/20/2022 Family History Medical History Relation Name Comments Diabetes Mother Relation Name Status Comments Mother Social History Tobacco Use Types Packs/Day Years Used Date Smoking Tobacco: Never Assessed Tobacco Cessation:Counseling Given: Not Answered Sex and Gender Information Value Date Recorded Sex Assigned at Not on file Gender Identity Not on file Sexual Orientation Not on file Job Start Date Occupation Industry Not on file Not on file Not on file Last Filed Vital Signs Vital Sign Reading Time Taken Comments Blood Pressure - - Pulse - - Temperature - - Respiratory Rate - - Oxygen Saturation - - Inhaled Oxygen Concentration - - Weight 68.5 kg (151 lb) 04/20/2022 10:24 AM EDT Height 152.4 cm (5') 04/20/2022 10:24 AM EDT Body Mass Index 29.49 04/20/2022 10:24 AM EDT Plan of Treatment Health Maintenance Due Date Last Done Comments Hepatitis C Screening 1954 Depression Screening 1966 Preventative Health Evaluation 1972 Colon Cancer Screening (Colonoscopy) 1999 Breast Cancer Screening (Mammogram) 2004 Shingrix-Zoster Vaccine (1 of 2) 2004 Fall Risk Assessment 2019 Osteoporosis Screening (DEXA Scan) 2019 Pneumococcal Vaccine (3 of 3 - PPSV23 or PCV20) 06/06/2023 06/06/2018, 04/25/2017 COVID-19 Vaccine (3 - season) 2024 05/05/2021, 04/14/2021 Influenza Vaccine (#1) 2024 , 04/27/2019, 06/06/2018, Additional history exists DTap / Tdap / Td (3 - Td or Tdap) 04/27/2029 04/27/2019, 12/06/2008 RSV Adult > 60+ Yrs or (1 - 1-dose 75+ series) 2029 Hepatitis B Vaccines Aged Out No long er eligible based on patient's age to complete this topic RSV Ped < 20 months Aged Out No longe r eligible based on patient's age to complete this topic Care Teams Manager Steel Relationship Specialty Start Date End Date Heather Luke MD PCP - General Internal Medicine 04/20/22
--- NOTE | 2024-12-15 08:01 | MHC.OFFVIS ---
Vital Signs 12/15/24 08:03 Height 5 ft Weight 155 lb 13.869 oz BMI 30.4 BP 110/76 Blood Pressure Location Rt brachial Position Sitting Pulse 79 Pulse Oximetry (%) 97 Intake Visit Reasons: RA Intake Note: Patient is here for follow up on RA. waiting for labs from [facility]. Accompanied by: Self / Same As Patient Allergies amoxicillin Allergy (Intermediate, Verified 12/15/24 08:02) Rash HPI HPI RA: Details: No flares. No recent infections. She had cataract surgery and cornea repai 4 years agor. She has chronic dry eyes affecting right eye and sees [facility] [place]. Doing well. She has her usual aches and pains. MS none. 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 Osteoarthritis of left knee GERD (gastroesophageal reflux disease) Depression Chronic persistent hepatitis History of positive PPD History of wrist fracture Osteoporosis Seropositive rheumatoid arthritis Surgical History Hx of hand surgery H/O total knee replacement Social History Household Members Other:: Living with sister Housing: House Are you a primary infant caregiver to a significant other at home: Yes Do you presently have visiting nurse or other home services: No 75 years or older and lives alone: No Alcohol intake: never Patient Tobacco Use Status: Never used Tobacco e-Cigarette/Vaping Use: Never Used service: No Current occupational status: retired Physical Exam Vital Signs: Last Vital Signs Pulse 79 12/15/24 08:03 BP 110/76 12/15/24 08:03 Pulse Ox 97 12/15/24 08:03 BMI result Body Mass Index 30.4 Const Other: General: Comfortable CVS: RRR Respiratory: clear to auscultation bilaterally. Good respiratory effort Skin: No lesions seen MSK: Volar subluxation of MCPs. No synovitis. Normal range of motion of upper extremity and lower extremities. No MTP tenderness Assessment & Plan Assessment & Plan (1) Seropositive rheumatoid arthritis: Comment: In clinical remission on Enbrel. Rheumatology history. Seropositive RA. History of prior use of methotrexate. Enbrel started 2012 till present. 06/30: R 3- MCP implants. Fused left wrist before 2020. 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: Code(s): Z79.899 - Other assisted (current) drug therapy Category: Medical Plan: As above Orders: Orders Erythrocyte Sedimentation Rate Today M05.9 - Rheumatoid arthritis with rheumatoid factor, unspecified, Z79.899 - Other assisted (current) drug therapy Hepatitis B,C Profile Today M05.9 - Rheumatoid arthritis with rheumatoid factor, unspecified, Z79.899 - 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 Complete Blood Count Man Dif Today M05.9 - Rheumatoid arthritis with rheumatoid factor, unspecified, Z79.899 - Other assisted (current) drug therapy Alanine Aminotransferase Today M05.9 - Rheumatoid arthritis with rheumatoid factor, unspecified, Z79.899 - 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 Aspartate Amino Transferase Today M05.9 - Rheumatoid arthritis with rheumatoid factor, unspecified, Z79.899 - Other assisted (current) drug therapy Creatinine Today M05.9 - Rheumatoid arthritis with rheumatoid factor, unspecified, Z79.899 - 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
[2024-12-15 08:03] VITALS: BP 110/76; PULSE 79; O2SAT 97; BMI 30.4
== END 2024-12-15 08:30 | disposition home or self-care (01) ==
LOC: HO.RHES 07:57
PROVIDERS: PCP Internal Medicine; Visit Provider Internal Medicine Rheumatology
DX: M05.9 Rheumatoid arthritis with rheumatoid factor, unspecified (principal); Z79.899 Other long term (current) drug therapy
CPT/HCPCS: 99214; G2211

== ENCOUNTER 2024-12-15 07:56 | Outpatient (REF) | payer MEDICARE, OTHER, SELFPAY ==
--- OUTSIDE RECORDS SUMMARY | 2024-12-15 09:04 | XMS_ITS | Clinical Summary ---
Author Organization [facility] [address] [place] [address] [place] [phone] Phone Care Team Providers Care Starch And Prosize Mixer Name Role Phone Heather Luke MD Primary Care Provider [phone] Allergies Active Allergy Reactions Criticality Noted Date Comments Amoxicillin Hives 03/18/2020 Bacterial infection Medications cholecalciferol (VITAMIN D-3) 50 mcg (2,000 unit) capsule TAKE ONE CAPSULE BY MOUTH EVERY DAY 4 Active etanercept (EnbreL SureClick) 50 mg/mL (1 mL) injection pen Inject 50 mg as directed every 7 days. 1 Active venlafaxine XR (EFFEXOR-XR) 150 mg 24 hr capsule Take 1 capsule (150 mg total) by mouth 2 (two) times a day. 180 capsule 1 5 Active omeprazole (PriLOSEC) [address] capsule Take 1 capsule (20 mg total) by mouth 2 (two) times a day. 180 capsule 1 5 Active omeprazole (PriLOSEC) [address] capsule TAKE ONE CAPSULE BY MOUTH TWICE A DAY 180 capsule 1 4 12/09/19 25 Discontinu ed(Reorder ) venlafaxine XR (EFFEXOR-XR) 150 mg 24 hr capsule TAKE ONE CAPSULE BY MOUTH TWICE A DAY 180 capsule 4 12/09/19 25 Discontinu ed(Reorder ) Active Problems Problem Noted Date Diagnosed Date Left wrist pain 12/09/2024 Pain from implanted hardware 12/07/2024 Obesity (BMI 30.0-34.9) 09/25/2023 Total knee replacement status 09/12/2022 Overview (07/24/2024): 09/03 right TKR Prediabetes 08/22/2022 Assessment & Plan (12/08/2024 11:58 AM EDT): Orders: Hemoglobin A1c; Future Vitamin D deficiency 03/30/2022 Assessment & Plan (12/08/2024 11:58 AM EDT): Orders: Vitamin D 25 hydroxy; Future Osteoarthritis of right knee 03/18/2020 Major depressive disorder, r ecurrent episode, mild ([facility] V24) 06/21/2015 Assessment & Plan (12/08/2024 11:58 AM EDT): Seropositive rheumatoid arth ritis ([facility] V24, [facility] V28) 05/18/2015 Overview (07/24/2024): 2013 - Enbrel started 06/30: R 3- MCP implants Assessment & Plan (12/08/2024 11:58 AM EDT): Anxiety 01/14/2014 Osteoporosis 06/09/2009 Overview (07/24/2024): 05/20 BMD T scores: -3.1 at LS spine and -1.4 at hip Alendronate started 06/20 - Stopped 2012 - stomach pains BMD slightly improved 2017 over 2011 Wrist fracture 02/11/2009 Overview (07/24/2024): Left, 01/18: required surgery. Revised 2010 Chronic persistent hepatitis ([facility] V24, [facility] V28) 08/27/2005 Overview (07/24/2024): Autoimmune hepatitis, + liver biopsy. On azathioprine ~[id number] Esophageal reflux 08/27/2005 Encounters Date Type Department Care Team Description 12/08/2024 11:00 AM EDT Office Visit Adult Medicine [address] [phone] Heather Luke MD Encounter for annual wellness visit (AWV) in Medicare patient (Primary Dx); Prediabetes; Vitamin D deficiency; Seropositive rheumatoid arthritis ([facility] V24, [facility] V28); Major depressive disorder, recurrent episode, mild ([facility] V24) 12/07/2024 9:30 AM EDT Office Visit Orthopedic Surgery [address] [phone] Joaquina Flores MD Pain from implanted hardware, sequela (Primary Dx); Left wrist pain; Seropositive rheumatoid arthritis ([facility] V24, [facility] V28) 11/05/2024 10:00 AM EDT Office Visit Orthopedic [address] [phone] Naomi Bansal PA Left wrist pain (Primary Dx); Right hand pain from Last 3 Months Immunizations Name Administration Dates Next Due H1N1 Inj Preservative Free 06/24/2009 Influenza Quadravalent, MDCK , 0.5ml, preservative free (Flucelvax) 6mo and older 04/27/2019,06/06/2018 Influenza Quadravalent, MDCK , 0.5ml, with preservative (Flucelvax) 6mo and older 04/25/2017 Influenza trivalent, 0.5mL ( Fluad) 65yo and older 07/18/2020 Influenza trivalent, 0.5mL, preservative free (Fluarix; FluLaval; Fluzone) ages 6mo and older (Afluria) 3 years and older 06/21/2016,05/18/2015,05/13/2014,04/24,06/18/2012,07/25/2009,06/11/2008 ,05/27/2006 Pneumococcal conjugate 13 va lent (Prevnar 13, PCV13) 2mo and older 06/06/2018 Pneumococcal polysaccharide 23 valent (Pneumovax 23) 2yo and older 04/25/2017 Td Tetanus diptheria (Tdvax) 7yo and older 04/27/2019 Tdap Tetanus diptheria acell ular pertussis (Boostrix; Adacel) 7yo and older 12/06/2008 Surgical History Surgery Date Site/Laterality Comments HYSTERECTOMY CHOLECYSTECTOMY OTHER SURGICAL HISTORY 2008 orif of left arm, revised 2010 OTHER SURGICAL HISTORY 2010 ARTHRODESIS WRIST COMPLETE W/O BONE GRAFT; COMMENT: left OTHER SURGICAL HISTORY 01/2013 tenolysis finger, right 3, 4. repeated 11/23 CATARACT EXTRACTION 2017 Right HAND SURGERY 06/2020 Right 3-5 MCP implants COLONOSCOPY 01/17/2017 10 mm tubular adenoma. COLONOSCOPY 10/10/2006 normal COLONOSCOPY 05/12/2020 No polyps; repeat in 5 years. 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, treated with INH Unspecified inflammatory polyarthropathy 08/27/2005 Associated with auto-immune hepatitis Plaquenil caused LFT elevation Elevated cholesterol 03/08/2008 Wrist fracture 01/2009 left, required s urgery Osteoarthritis of right knee 03/18/2020 Vitamin D deficiency 03/30/2022 Prediabetes 08/22/2022 Total knee replacement status 09/12/2022 right TKR Osteoporosis 06/09/200905/20 BMD T scor es: -3.1 at LS spine and -1.4 at hip Alendronate started 06/20 - Stopped 2012 - stomach pains BMD slightly improved 2016 over 2011 Seropositive rheumatoid arth ritis ([facility] V24, [facility] V28) 05/18/20152012 - Enbrel started 06/30 : R 3- MCP implants Anxiety 01/14/2014 Family History Medical History Relation Name Comments Other: cerebral palsy Brother 1 Arthritis Brother 2 DM Other: unknown Father Stroke Mother 57 Diabetes Sister Breast cancer Neg Hx Relation Name Status Comments Brother 1 Alive Brother 2 Father Maternal Grandfather Maternal Grandmother Mother Paternal Grandfather Paternal Grandmother Sister Social History Tobacco Use Types Packs/Day Years Used Date Smoking Tobacco: Never Smokeless Tobacco: Never Tobacco Cessation:Counseling Given: Not Answered Alcohol Use Standard Drinks/Week Comments No 0 (1 standard drink = 0.6 oz pur e alcohol) Comments No Sex and Gender Information Value Date Recorded Sex Assigned at Not on file Legal Sex Female 1:34 AM EST Gender Identity Not on file Sexual Orientation Not on file Obstetrics History Para Term AB IAB SAB Ectopic Multiple Livin g Live Births 2 2 2 2 Date Outcome GA Total Labor Labor/2nd/3rd Weight Sex Type Anes PTL Shara A1 A5 Name Clin Term Term Last Filed Vital Signs Vital Sign Reading Time Taken Comments Blood Pressure 110/70 12/08/2024 10:51 AM EDT Pulse 84 12/08/2024 10:51 AM EDT Temperature 37 ??C (98.6 ??F) 12/08/2024 10:51 AM EDT Respiratory Rate 14 12/08/2024 10:51 AM EDT Oxygen Saturation - - Inhaled Oxygen Concentration - - Weight 71.7 kg (158 lb) 12/08/2024 10:51 AM EDT Height 152.4 cm (5') 12/08/2024 10:51 AM EDT Body Mass Index 30.86 12/08/2024 10:51 AM EDT Plan of Treatment Upcoming Encounters Date Type Department Care Team (Late st Contact Info) Description 06/11/2025 9:30 AM EDT Office Visit Adult Medicine [facility] [address] [place] [phone] Princess Pabon PA [address] [place] [address] Scheduled Procedures Name Priority Associated Diagnoses Date/Ti me REMOVAL IMPLANT Pain from implanted hardware, sequela Health Maintenance Due Date Last Done Comments Zoster Vaccines (1 of 2) 2004 COVID-19 Vaccine (3 - Pfizer risk series) 06/02/2021 05/05/2021, 04/14/2021 Social Influencers of Health Screening 07/21/2022 Pneumococcal Vaccine: 50+ Years (3 of 3 - PCV20 or PCV21) 06/06/2023 06/06/2018, 04/25/2017 Influenza Vaccine (Season Ended) 2025 07/18/2020, 04/27/2019, 06/06/2018, Additional history exists Colorectal Cancer Screening: Colonoscopy 05/12/2025 05/12/2020 Depression Screening 12/08/2025 12/08/2024, 06/08/20 24 Falls Risk Assessment 12/08/2025 12/08/2024, 024 Medicare Annual Wellness Visit 12/08/2025 12/08/2024 Breast Cancer Screening 08/26/2026 08/26/19 25, 08/15/2023, 08/07/2022, Additional history exists Cholesterol Screening (Lipid Panel) 03/21/2028 03/21/2023 DTaP,Tdap,and Td Vaccines (3 - Td or Tdap) 04/27/2029 04/27/2019, 12/06/2008 RSV Immunization Adult Patients (1 - 1-dose 75+ series) 2029 Osteoporosis Screening (Bone Density Screening) 10/08/2033 10/08/2023, 07/25/2017 Hepatitis C Screening Completed 01/18/1998 HIB Vaccines Aged Out No longer eligi ble based on patient's age to complete this topic HPV Vaccines Aged Out No longer eligi ble based on patient's age to complete this topic Hepatitis A Vaccines Aged Out No long er eligible based on patient's age to complete this topic Hepatitis B Vaccines Aged Out No long er eligible based on patient's age to complete this topic IPV Vaccines Aged Out No longer eligi ble based on patient's age to complete this topic MMR Vaccines Aged Out No longer eligi ble based on patient's age to complete this topic Meningococcal ACWY Vaccine Aged Out N o longer eligible based on patient's age to complete this topic Meningococcal B Vaccine Aged Out No l onger eligible based on patient's age to complete this topic RSV Immunization Patients Under 20 months Aged Out No longer eligible based on patient's age to complete this topic Varicella Vaccines Aged Out No longer eligible based on patient's age to complete this topic Procedures Procedure Name Priority Date/Time Associated Diagnosis Comments HEMOGLOBIN A1C Routine 12/08/2024 11:24 AM EDT Prediabetes VITAMIN D 25 HYDROXY Routine 12/08/2024 11:24 AM EDT Vitamin D deficiency XR WRIST 3+ VIEWS LEFT Routine 11/05/2024 10:54 AM EDT Left wrist pain XR HAND 3+ VIEWS RIGHT Routine 11/05/2024 10:53 AM EDT Right hand pain MG MAMMO DIGITAL SCREENING W SAUL BILAT Routine 08/26/2024 9:56 AM EST Encounter for screening mammogram for breast cancer DEPRESSION SCREENING Routine 06/08/2024 DXA BONE DENSITY STUDY 1+ SITS AXIAL SKEL Routine 10/08/2023 11:42 AM EST Age-related osteoporosis without current pathological fracture FALLS RISK ASSESSMENT Routine 09/25/2023 LIPID PANEL Routine 03/21/2023 COLONOSCOPY Routine 05/12/2020 HEPATITIS C SCREENING Routine 01/18/1998 from Last 3 Months or Most Recently Relevant to Health Maintenance Results * Vitamin D 25 hydroxy (12/08/2024 11:24 AM EDT) Vit D, 25-Hydroxy 36.8 30.0 - 80.0 ng/mL LAB CHEMISTRY METHOD 12/08/2024 5:30 PM EDT [facility] Blood Venous blood specimen / Unknown Venipuncture / Unknown 12/08/2024 11:24 AM EDT 12/08/2024 11:24 AM EDT us Heather Luke MD LAB BLOOD ORDERABLES Final Resul t [facility] [address] [place] [address], [place] [phone] * Hemoglobin A1c (12/08/2024 11:24 AM EDT) Hemoglobin A1C 6.3 <6.5 % LAB CHEMISTRY METHOD 12/08/2024 9:21 PM EDT [facility] Mean Bld Glu Estim. 134 mg/dL LAB CHEMISTRY METHOD 12/08/2024 9:21 PM EDT [facility] Blood Venous blood specimen / Unknown Venipuncture / Unknown 12/08/2024 11:24 AM EDT 12/08/2024 11:24 AM EDT Heather Luke MD LAB BLOOD ORDERABLES Final Resul t [facility] [address] [place] [address], [place] [phone] * XR Wrist 3+ Views Left (11/05/2024 10:54 AM EDT) Anatomical Region Laterality Modality Upper Extremities, Wrist Left Compute d Radiography Narrative 11/05/2024 12:39 PM EDT Date of Visit: 11/05/2024 Reason for visit: Left wrist pain Views: AP, lateral, oblique left wrist Comparison: None Findings: Hardware across wrist and hand from fusion. ??At the plate distally there does appear to be loosening at the long finger metacarpal. ?? There is a lucency surrounding the most distal screw. Impression: Previous wrist fusion with hardware loosening. us Naomi HIGGINS IMG XR PROCEDURES Final Resul t * XR Hand 3+ Views Right (11/05/2024 10:53 AM EDT) Anatomical Region Laterality Modality Upper Extremities, Hand Right Computed Radiography Narrative 11/05/2024 12:40 PM EDT Date of Visit: 11/05/2024 Reason for visit: Right hand pain Views: AP, lateral oblique right hand Comparison: None Findings: Diffuse arthritic changes of the right hand and osteopenia. ?? Sequelae from previous MCP arthroplasties at the ring and long finger. ?? Arthritic changes at metacarpal phalangeal joints of index and small finger. Impression: Diffuse osteoarthritis right hand and evidence of previous MCP arthroplasties of the ring and long finger us Naomi M Bansal PA IMG XR PROCEDURES Final Resul t * MG Mammo Digital Screening w Saul bilat (08/26/2024 9:56 AM EST) Anatomical Region Laterality Modality Breast Bilateral Mammography 08/26/2024 4:40 PM EST Impressions 08/26/2024 4:45 PM EST BILATERAL BREASTS: Benign, no evidence of malignancy. Normal interval follow-up is recommended in 12 months. BREAST DENSITY: C - The breasts are heterogeneously dense which may obscure small masses. BI-RADS CATEGORY: 2 - BENIGN RECOMMENDATION: Screening bilateral mammogram is recommended in 1 year. Mammo Location: [facility], [address] [place] [address], [phone], . -------- FINAL REPORT -------- Dictated By: Travis Somers Dictated Date: 08/26/2024 16:40 ET Assigned Physician: Travis Somers Reviewed and Electronically Signed By: Travis Somers Signed Date: 08/26/2024 16:45 ET Workstation ID: [id number] Transcribed By: Self Edit Transcribed Date: 08/26/2024 16:40 ET Narrative 08/26/2024 4:45 PM EST STUDY: Bilateral screening mammography with tomosynthesis and CAD TECHNIQUE: Bilateral full-field digital screening mammography is obtained and read in conjunction with computer-aided detection. ??Tomosynthesis as well as 2-D C view imaging were obtained. ?? COMPARISON: Comparison made to multiple prior, most recent August 15, 2023, and most remote July 28, 2015. RIGHT BREAST: ??History of previous excisional biopsy and needle core biopsy. No significant masses, suspicious calcifications or other abnormalities are seen. LEFT BREAST: No significant masses, suspicious calcifications or other abnormalities are seen. Procedure Note Travis Somers MD - 08/26/2024 STUDY: Bilateral screening mammography with tomosynthesis and CAD TECHNIQUE: Bilateral full-field digital screening mammography is obtainedand read in conjunction with computer-aided detection. Tomosynthesis aswell as 2-D C view imaging were obtained. COMPARISON: Comparison made to multiple prior, most recent August, and most remote July 28, 2015. RIGHT BREAST: History of previous excisional biopsy and needle corebiopsy. No significant masses, suspicious calcifications or otherabnormalities are seen. LEFT BREAST: No significant masses, suspicious calcifications or otherabnormalities are seen. IMPRESSION: BILATERAL BREASTS: Benign, no evidence of malignancy. Normal intervalfollow-up is recommended in 12 months. BREAST DENSITY: C - The breasts are heterogeneously dense which mayobscure small masses. BI-RADS CATEGORY: 2 - BENIGN RECOMMENDATION: Screening bilateral mammogram is recommended in 1 year. Mammo Location: [facility], [address] [place] [address], [phone], . -------- FINAL REPORT -------- Dictated By: Travis Somers Dictated Date: 08/26/2024 16:40 ET Assigned Physician: Travis Somers Reviewed and Electronically Signed By: Travis Somers Signed Date: 08/26/2024 16:45 ET Workstation ID: [id number] Transcribed By: Self Edit Transcribed Date: 08/26/2024 16:40 ET Heather Luke MD IM BI PROCEDURES Final Result * Depression Screening (06/08/2024) Depression Screening Abstracted Historical Provider HEALTH MAINTENANCE Final Result * DXA BONE DENSITY STUDY 1+ SITS AXIAL SKEL (10/08/2023 11:42 AM EST) Anatomical Region Laterality Modality Bone Densitometr y 09/25/2023 10:0 7 AM EST Narrative 10/09/2023 4:43 PM EST BONE DENSITY ? Lumbar Spine T-score is -3.2 ?? (SD relative to 20-29 y/o adult) Z-score is -1.1 ??(SD relative to age matched peers) This is consistent with osteoporosis by criteria defined by the WHO. Left Hip T-score is -3.1 Z-score is -1.4 This is consistent with osteoporosis by criteria defined by the WHO. Comparison exam(s): no statistically significant change in the bone density of the hip and lumbar spine when compared to most recent bone density examination ?? Confidence level is +/-95%. Impression: Based on the World Health Organization criteria, Selina Moran should be classified as having osteoporosis. [facility] Department of Internal Medicine recommends using National Osteoporosis Foundation (NOF) guidelines in treatment decisions related to osteoporosis. NOF guidelines suggest considering treatment for postmenopausal women and men aged 50 or older presenting with the following: History of hip or vertebral fracture. T-score less than or equal to -2.5 (DXA) at the femoral neck, total hip, or spine, after appropriate evaluation to exclude secondary causes. Low bone mass (T-score between -1.0 and -2.5 at the femoral neck or spine) AND a 10-year probability of a hip fracture greater than or equal to 3% OR a 10-year probability of a major osteoporosis-related fracture greater than or equal to 20% based on the [place]-adapted WHO algorithm Please note that all treatment decisions require clinical judgment and consideration of individual patient factors, including patient preferences, co-morbidities, previous drug use, risk factors not captured in the FRAX model (e.g., frailty, falls, vitamin D deficiency, increased bone turnover, interval significant decline in bone density) and possible under- or over-estimation of fracture risk by FRAX. Procedure Note Pretty Panda MD - 03/30/2024 BONE DENSITY Lumbar Spine T-score is -3.2 (SD relative to 20-29 y/o adult) Z-score is -1.1 (SD relative to age matched peers) This is consistent with osteoporosis by criteria defined by the WHO. Left Hip T-score is -3.1 Z-score is -1.4 This is consistent with osteoporosis by criteria defined by the WHO. Comparison exam(s): no statistically significant change in the bonedensity of the hip and lumbar spine when compared to most recent bonedensity examination Confidence level is +/-95%. Impression: Based on the World Health Organization criteria, Selina Moran should beclassified as having osteoporosis. [facility] Department of Internal Medicine recommendsusing National Osteoporosis Foundation (NOF) guidelines in treatmentdecisions related to osteoporosis. NOF guidelines suggest consideringtreatment for postmenopausal women and men aged 50 or older presentingwith the following: History of hip or vertebral fracture. T-score less than or equal to -2.5 (DXA) at the femoral neck, total hip,or spine, after appropriate evaluation to exclude secondary causes. Low bone mass (T-score between -1.0 and -2.5 at the femoral neck or spine)AND a 10-year probability of a hip fracture greater than or equal to 3% ORa 10-year probability of a major osteoporosis-related fracture greaterthan or equal to 20% based on the [place]-adapted WHO algorithm Please note that all treatment decisions require clinical judgment andconsideration of individual patient factors, including patientpreferences, co-morbidities, previous drug use, risk factors not capturedin the FRAX model (e.g., frailty, falls, vitamin D deficiency, increasedbone turnover, interval significant decline in bone density) and possibleunder- or over-estimation of fracture risk by FRAX. Princess HIGGINS IMG DXA PROCEDURES Final Resu lt * Falls Risk Assessment (09/25/2023) [facility] Falls Risk Assessment Abstracted Historical Provider HEALTH MAINTENANCE Final Result * (ABNORMAL) Lipid panel (03/21/2023) [facility] LDL/HDL Ratio 4 0 - 4 Triglycerides 119 0 - 150 mg/dL Cholesterol 222(A) 0 - 200 mg/dL HDL 50 >=40 mg/dL LDL Cholesterol 149(A) 0 - 100 mg/dL Blood Venous blood specimen / Unknown Historical Provider LAB BLOOD ORDERABLES Yennifer l Result * Colonoscopy (05/12/2020) Colonoscopy no interpretation , abstracted Anatomical Region Laterality Modality Other Historical Provider HEALTH MAINTENANCE Final Result * Hepatitis C Screening (01/18/1998) Hepatitis C Screening Abstracted Historical Provider HEALTH MAINTENANCE Final Result from Last 3 Months or Most Recently Relevant to Health Maintenance Insurance MEDICARE [facility] Advance Directives Documents on File Type Date Recorded Patient Pocketed Spring Assembler Expl anation Health Care Decision (hx) 09/06/2022 AD BAGLEY DIRECTIVE Health Care Decision (hx) 09/06/2022 AD BAGLEY DIRECTIVE Care Teams Starch And Prosize Mixer Relationship Specialty Start Date End Date Heather Luke MD [address] [place] [address] PCP - General Internal Medicine 05/27/15
--- OUTSIDE RECORDS SUMMARY | 2024-12-15 09:04 | XMS_ITS | Clinical Summary ---
Author Organization [facility] Address [address] [place] [address] Care Team Providers Care Etched Circuit Processor Name Role Phone Heather Luke MD Primary Care Provider [phone] Allergies Active Allergy Reactions Criticality Noted Date Comments Amoxicillin 04/20/2022 Medications Medication Sig Dispensed Refills Start Date End Date Status omeprazole (PriLOSEC) 20 MG capsule Take 20 mg by mouth 2 (two) times a day. 0 03/30/2022 Active ergocalciferol (VITAMIN D2) capsule 92558 units TAKE ONE CAPSULE BY MOUTH EVERY [...] age to complete this topic Care Teams Etched Circuit Processor Relationship Specialty Start Date End Date Heather Luke MD PCP - General Internal Medicine 04/20/22
--- OUTSIDE RECORDS SUMMARY | 2024-12-15 09:04 | XMS_ITS | Data Portability ---
Author Organization [place] [facility] Elizabeth Calvillo [place] Address [address] [place] [address] Care Team Providers Care Video News Editor Name Role Phone DENNIS KELLEY Referring Provider [phone] DENNIS KELLEY Primary Care Provider [phone] Assessment Encounter Date Assessment Date Assessment LastModified by Organization Details LastModified Time 11/21/2023 11/21/2023 HPI : Patient is here for 1 year follow-up for a RIGHT total knee replacement.?Patient reports good pain relief in the knee and satisfactory alevism of function in terms of activities of daily living. Current condition is improved relative to their pre operative condition. They have not encountered any major problems since their last office visit. She is very pleased with the results of her right total knee arthroplasty. She is able to perform all of her activities of daily living. She does stairs without any difficulty. Her only limitation is the inability to kneel though she has found ways to work around that. She has a persistent area of numbness at the lateral aspect of the knee. She understands that that is permanent; this does not bother her. Physical Exam : Patient is well nourished, well-developed, in no acute distress, with appropriate mood and affect. The patient is oriented to time, place, and person. Respirations are even and unlabored. The affected limb is well-perfused, with well healed skin incision. The patient demonstrates good knee motion, stability, and strength. The knee moves from 0-130 degrees. Muscle strength is normal. Pedal pulses are palpable. X-Ray: 5 view x-ray study of right knee(s) obtained during today's office encounter does not show any signs of implant related issues including loosening, malposition, instability, periprosthetic fracture, periosteal reaction or infection. Assessment/Plan : This patient is functioning well after knee arthroplasty. Continue knee conditioning exercises. Xqfs-piy-zypjwig medications as needed. The patient understands that ultimate failure may occur due to mechanical wear, loosening or breakage. Follow-up at approximately five year post-op is recommended to assess for the possibility of failure. Follow up sooner with any problems. At least 25 minutes were spent reviewing previous charting and radiographs, obtaining history and physical exam, and reviewing treatment plan. This patient was seen and evaluated by Marion De La Cruz MS, ANILA in indirect conjunction with documenting/super vising provider Filipe Hernandez MD. He agrees with history, physical examination, tests/diagnostic imaging, and treatment plan. Not available 11/21/2023 09:47:44 07/02/2024 07/02/2024 68-year-old female is a year and a half status post right sided total knee arthroplasty. The knee is pain-free and high functioning. There are no clinical or radiographic signs of any failure of her prosthetic. She is describing for me clinical symptoms of restless leg syndrome. I have advised that she communicate the symptoms with her primary care doctor for further discussion about treatment options. She will also be offered a follow-up visit with one of our foot and ankle specialist to evaluate right ankle pain. This patient was seen and evaluated by Marion De La Cruz MS, ANILA in indirect conjunction with documenting/super vising provider Filipe Hernandez MD. He agrees with history, physical examination, tests/diagnostic imaging, and treatment plan. This document was generated using voice recognition software. As a result, there may be unintended spelling, grammatical and/or textual errors. Not available 07/02/2024 11:42:06 07/23/2024 07/23/2024 We discussed today her diagnosis of right-sided insertional Achilles tendinitis. We discussed nonoperative management including wearing a boot, tendon rest, anti-inflammatori es, physical therapy, stretching, treatments like EPAT, dry needling, or laser treatments, and ultimately surgical intervention. She was given a cam boot for immobilization today. We will also trial meloxicam. She will follow-up in 3 weeks for repeat assessment and plans to begin physical therapy at that time. Patient was seen and evaluated by Stephanie Kapoor PA-C in indirect conjunction with Documenting Provider: Romana Forbes MD He/She agrees with history, physical examination, tests/diagnostic imaging, and treatment plan Patient was prescribed a short cam boot for above diagnosis. The patient is ambulatory but has weakness and/or instability which requires stabilization from this semi-rigid / rigid orthosis to improve their function. [email or web address] Not available 07/23/2024 11:20:18 08/13/2024 08/13/2024 We reviewed her diagnosis of Achilles tendinitis of the right leg. She can continue with her cam boot but I also recommend initiating formal physical therapy. She is in agreement. Plan to follow-up in 5 to 6 weeks or sooner if needed. Patient was seen and evaluated by Stephanie Kapoor PA-C in indirect conjunction with Documenting Provider: Romana Forbes MD He/She agrees with history, physical examination, tests/diagnostic imaging, and treatment plan Patient was prescribed a short cam boot for above diagnosis. The patient is ambulatory but has weakness and/or instability which requires stabilization from this semi-rigid / rigid orthosis to improve their function. Not available 08/13/2024 13:01:34 12/04/2024 12/04/2024 HPI : Patient is here today with complaints of right knee pain. She has a history of a right total knee replacement with Dr. Moreno from 2022. She states she was doing well until 2 weeks ago where she tripped. She felt a twisting to her knee. She had increased pain. She has noted some improvement in this over the last 2 weeks, but she still wanted to get it checked out. There are some mild tenderness. She has not done any treatments for it. Review of systems is negative for other rapidly progressive neurological disorder, chest pain, shortness of breath, fevers, chills, or any signs of active or persistent local or systemic infection. Physical Exam ? ? ?: Patient is well nourished, well-developed, in no acute distress, with appropriate mood and affect. The patient is oriented to time, place, and person. Examination of the contralateral knee shows normal range of motion, strength, no tenderness, and intact skin. The affected limb is well-perfused, with well-healed skin incision, shows a grossly normal motor and sensory examination. Right knee motion is is not reduced and does not cause significant pain. The right knee moves from 0-130 degrees. The knees are stable within those [id number]. The alignment of the right knee is neutral . Muscle strength is normal. Pedal pulses are palpable. Hip examination, including flexion and internal rotation, was negative in that groin pain was not produced. Assessment/Plan ? ? ?: Patient had some increased pain next to a right total knee replacement. Exam, imaging, and history do not show any signs of implant related issues including loosening, malposition, instability, periprosthetic fracture, or infection. Her symptoms are improving. We discussed that this was likely just a mild soft tissue injury. I expect this to continue to improve. Patient was reassured. She can follow-up as needed. Not available 12/04/2024 14:34:50 Plan of Treatment Reminders Order Date Submit Date Provider Last Modified By Organization Details Last Modified Time Details Appointments None recorded. Lab None recorded. Referral None recorded. Procedures None recorded. Surgeries None recorded. Imaging XR, knee, 3 view 2024 025 [email or web address] [facility], [address], [place], [address], 5 14:35:39 XR, ankle, 3 or more view 2023 024 [email or web address] [facility], [address], [address], [place], [address], 4 11:46:14 XR, knee, 3 view 2023 024 [email or web address] [facility], [address], [address], [place], [address], 4 09:50:29 Medication Orders meloxicam 15 mg tablet 2023 024 [id number], [id number], [place], [address], 4 11:05:22 Patient TargetsNo targets recorded. Patient Instructions Encounter Date Encounter Id Patient Instructions Last Modified By Organization Details Last Modified Time 12/04/2024 [id number] AP, lateral, and patellar radiographs of the right knee taken today demonstrate satisfactory position and alignment of components following right total knee replacement. Not available 12/04/2024 14:32:26 Reason for Referral None Reported. Problems Name Problem SNOMED Code Status Onset Date Resolution Date Notes Provider Name and Address Organization Details Recorded Time History of right total knee replacement 8621621692574 102 Active 2022 MARION DE LA CRUZ PA-C [address], [place], [address], [place] [facility] 3 09:34:16 Spasm 16985318 Active 2022 MARION BACON PA-C [address], [place], [address], [place] [facility] 3 11:29:25 Postoperati ve pain 059884010 Active 2022 MARION BACON PA-C [address], [place], [address], [place] [facility] 3 11:34:09 Right Achilles tendinitis 4247248984073 02 Active 2023 STEPHANIE KAPOOR PA-C [address], [place], [address], [place] [facility] 4 11:05:12 Ankle pain 030873435 Active 2024 STEPHANIE KAPOOR PA-C [address], [place], [address], [place] [facility] 5 08:30:20 Problem Notes None recorded. Procedures Surgical History Date Name Laterality Status Provider Name and Address Organization Details Recorded Time Total knee arthroplasty completed Melissa Gray [place] - [facility] 11/02/2022 12:59:50 Imaging Results None recorded. Procedure Notes None recorded. Medical Equipment None Reported. Allergies Allergen ID Allergen Name Allergen Category Reaction Reaction Severity Criticality Documentation Date Start Date Code Code System Note Provider Name and Address Organization Details Recorded Time 867 amoxicill in medicatio n Not available Not available Not available 11/02/2022 723 RxNorm Melissa Gray null, [place] [facility] 3 12:58:13 Medications Name Sig Start Date Stop Date Status Note LastModified by Organization Details LastModified Time cyclobenzap rine 10 mg tablet TAKE 1/2 TO 1 TABLET BY MOUTH EVERY 8 HOURS NEEDED FOR MUSCLE SPASMS. CAN CAUSE DIZZINESS /LIGHT HEADEDNES S. DO NOT DRIVE OR OPERATE HEA 07/23 completed Not Available Not Available Not Available clindamycin HCl 300 mg capsule TAKE 2 CAPSULES BY MOUTH 1 HOUR PRIOR TO DENTAL APPOINTME NT 11/20 completed Not Available Not Available Not Available cetirizine 10 mg tablet 07/23 completed Not Available Not Available Not Available ibuprofen 800 mg tablet TAKE 1 TABLET BY MOUTH EVERY 8 HOURS NEEDED FOR PAIN. MAX 4 TABLETS PER 24 HOURS 04/29 completed Not Available Not Available Not Available ofloxacin 0.3 % eye drops INSTILL 1 DROP INTO THE RIGHT EYE 4 TIMES DAILY STARTING THREE DAYS PRIOR TO SURGERY AND CONTINUIN G active Not Available Not Available No t Available cimetidine 400 mg tablet TAKE ONE TABLET BY MOUTH TWICE A DAY 07/23 completed Not Available Not Available Not Available meloxicam 15 mg tablet TAKE ONE TABLET BY MOUTH EVERY DAY AFTER MEALS active Not Available Not Available No t Available clindamycin HCl 150 mg capsule TAKE 1 CAPSULE BY MOUTH EVERY 6 HOURS FOR 7 DAYS 04/29 completed Not Available Not Available Not Available venlafaxine ER 150 mg capsule,ext ended release 24 hr TAKE ONE CAPSULE BY MOUTH TWICE A DAY active Not Available Not Available No t Available acetaminoph en 500 mg tablet TAKE TWO TABLETS BY MOUTH THREE TIMES A DAY 04/29 completed Not Available Not Available Not Available ondansetron 8 mg disintegrat ing tablet 07/23 completed Not Available Not Available Not Available prednisolon e acetate 1 % eye drops,suspe nsion 4 drops 4 times a day by ophthalmi c route. active Not Available Not Available No t Available lorazepam 0.5 mg tablet TAKE ONE TABLET BY MOUTH TWICE A DAY NEEDED FOR ANXIETY OR INSOMNIA 04/29 completed Not Available Not Available Not Available methocarbam ol 750 mg tablet TAKE 1 TABLET BY MOUTH EVERY 8 HOURS NEEDED 04/29 completed Not Available Not Available Not Available triamcinolo ne acetonide 0.025 % topical cream APPLY TO ARMS, TRUNK AND LEGS TWICE NEEDED FOR PRURITIS, DECREASE TO DAILY OR EVERY OTHER DAY SYMPTOMS IMPROVE 04/29 completed Not Available Not Available Not Available gabapentin 300 mg capsule TAKE ONE CAPSULE BY MOUTH EVERY EVENING AT BEDTIME NEEDED 04/29 completed Not Available Not Available Not Available omeprazole 20 mg capsule,del ayed release TAKE ONE CAPSULE BY MOUTH TWICE A DAY active Not Available Not Available No t Available Vitamin D2 1,250 mcg (50,000 unit) capsule 1 capsule every day by oral route. active Not Available Not Available No t Available oxycodone 5 mg tablet TAKE 1 TABLET BY MOUTH EVERY 12 HOURS NEEDED FOR PAIN 04/29 completed Not Available Not Available Not Available enoxaparin 40 mg/0.4 mL subcutaneou s syringe INJECT 40 MG UNDER THE SKIN ONCE DAILY 07/23 completed Not Available Not Available Not Available cyclobenzap rine 5 mg tablet TAKE ONE TABLET BY MOUTH THREE TIMES A DAY NEEDED FOR MUSCLE SPASMS 01/21 completed Not Available Not Available Not Available Restasis 0.05 % eye drops in a dropperette 2 drops twice a day by ophthalmi c route. active Not Available Not Available No t Available Jantoven 1 mg tablet TAKE 6 TABLETS BY MOUTH EVERY DAY OR DIRECTED BY PHYSICIAN 04/29 completed Not Available Not Available Not Available Enbrel SureClick 50 mg/mL (1 mL) subcutaneou s pen injector 1 mL every week by sub-q route. active Not Available Not Available No t Available Stool Softener-St imulant Laxative 8.6 mg-50 mg tablet TAKE TWO TABLETS BY MOUTH AT BEDTIME 04/29 completed Not Available Not Available Not Available cholecalcif jesse (vitamin D3) 50 mcg (2,000 unit) capsule 1 capsule every day by oral route. active Not Available Not Available No t Available Refresh Optive Ronald-3 (PF) 0.5 %-1 %-0.5 % eye drops in a dropperette 5 drops 5 times a day by ophthalmi c route. active Not Available Not Available No t Available Vitals Date Recorded Body height Body mass index (BMI) Body weight Provider Name and Address Organization Details Last Updated DateTime 07/23/2024 152.4 cm 29.3 kg/m2 [address].[address] [place] [facility] 07/23/2024 10:58:02 Date Recorded Body height Body mass index (BMI) Body weight Provider Name and Address Organization Details Last Updated DateTime 08/13/2024 152.4 cm 29.3 kg/m2 [address].[address] [place] [facility] 08/13/2024 10:24:50 Date Recorded Body height Body mass index (BMI) Body weight Provider Name and Address Organization Details Last Updated DateTime 12/04/2024 152.4 cm 29.3 kg/m2 [address]30.[address] [place] [facility] 12/04/2024 14:12:24 Social History None recorded. Functional Status None recorded. Mental Status None recorded. Family History Relationship Description Onset Age of this Age Resolved Age Notes LastModified by Organization Details LastModified Time Mother Diabetes mellitus [email or web address] Not available 2022 12:59:03 Sister Diabetes mellitus [email or web address] Not available 2022 12:59:04 Sister Rheumatoid arthritis [email or web address] Not available 2022 12:59:17 Brother Diabetes mellitus [email or web address] Not available 2022 12:59:04 Medical History Condition Response Coronary Artery Disease N Gout N Hyperthyroidism N MRSA N Blood Transfusion N Emphysema N Depression N COPD N Hypothyroidism N Pacemaker N Vascular Disease N Gastrointestinal Disease N Anxiety Disorder Y Autoimmune disease N Arthritis Y Cancer N Stroke N High Cholesterol N Neurologic Disorder N Liver Disease N Organ Transplant N Rheumatoid Arthritis Y Arrhythmia N Fibromyalgia N Kidney Disease N Allergies/Hayfever Y Adverse Reaction to Anesthesia N Thyroid Problems N Anemia N Brain Injury N Heart Attack (MT) N Osteopenia N Diabetes N Bleeding Disorder N Seizures/Epilepsy N AIDS/HIV N Congestive Heart Failure (CHF) N Asthma N Amputation N Reflux/GERD N Sleep Apnea N Hepatitis N Aneurysm N Heart Disease N Pulmonary Embolism N Hypertension N Osteoporosis N Gynecological HistoryNo gynecological history recorded. Obstetrics History GPAL:G 0 P 0 0 0 0 Past Encounters Encounter ID Performer Location Encounter Start Date Encounter Closed Date Diagnosis/Indication Diagnosis SNOMED-CT Code Diagnosis ICD10 Code Diagnosis Note 1948 MD CANDELARIA Paulson [address] [place] [address] 11/02/2022 12:52:52 11/02/2022 13:15:16 Pain of right knee joint 1925740622 60862 M25.561 [id number] [facility] PHAN [facility] [address] [place] [address] 04/29/2023 09:05:13 04/29/2023 09:32:39 History of right total knee replacement 0541388803 078084 Z96.651 [id number] ANILA PHAN [facility] [address] [place] [address] 11/21/2023 09:22:27 11/21/2023 09:50:29 History of right total knee replacement 0224489434 668194 Z96.651 Additional diagnosis detail: History [place] [id number] ANILA PHAN [facility] [address] [place] [address] 07/02/2024 11:15:35 07/02/2024 11:42:28 History of right total knee replacement 5746937044 958480 Z96.651 Additional diagnosis detail: [place] [id number] ANILA BARTH [address] [address] 07/23/2024 10:37:40 07/23/2024 11:46:13 Ankle pain 404981526 M25.571 Right Achi lles tendinitis 0243140869 62570 M76.61 [id number] ANILA BARTH [address] [address] 08/13/2024 09:44:56 08/13/2024 10:24:51 Right Achilles tendinitis 6844271024 39140 M76.61 [id number] MD [facility]DEL[facility] [address] [place] [address] 12/04/2024 14:08:47 12/04/2024 14:31:04 History of right total knee replacement 0736391803 436590 Z96.651 Surgical follow-up 45824 4000 Z47.1 Z96.651 Health Concerns Section Related Observation LastModified by Organization Detai ls LastModified Time None Recorded Concern Status LastModified by Organization Details LastModified Time None Recorded Advance Directives Directive None Recorded Payers Encounter Date Sequence Insurance Name Policy Number Policy Mc Covered Member ID Mc Member ID Guarantor Name 11/21/2023 1 [place] Iris Kathi Moran [id number] Iris Moran 11/21/2023 2 [employer]IC[employer] - SENIOR SERVICES PLAN F (MEDICARE SUPPLEMENT) [id number] Iris M Moran [id number] Iris Moran 07/02/2024 1 [place] Iris M Moran [id number] Iris Moran 07/02/2024 2 [employer] - SENIOR SERVICES PLAN F (MEDICARE SUPPLEMENT) [id number] Iris M Moran [id number] Iris Moran 07/23/2024 1 [place] Iris M Moran [id number] Iris Moran 07/23/2024 2 [employer] - SENIOR SERVICES PLAN F (MEDICARE SUPPLEMENT) [id number] Iris M Moran [id number] Iris Moran 08/13/2024 1 [place] Iris M Moran [id number] Iris Moran 08/13/2024 2 [employer] - SENIOR SERVICES PLAN F (MEDICARE SUPPLEMENT) [id number] 2 Iris M Moran [id number] Iris Moran 12/04/2024 1 [place] Iris Kathi [place] [id number] Iris Moran 12/04/2024 2 [employer] - SENIOR SERVICES PLAN F (MEDICARE SUPPLEMENT) [id number] Iris M Moran [id number] Iris Moran Notes Date Note Type Note Provider Name and Address Organization Details Recorded Time 07/02/2024 text/html 68-year-old fema norm presents with complaints of restless leg and new right ankle pain. She inquires as to whether or not the ankle pain could be coming from the knee. Notably she is status post right sided total knee arthroplasty by Dr. Moreno in October 2022. She had a smooth recovery back to a high level of comfort and function. Serial x-rays have shown no evidence for complications or failure of her prosthetic. Currently the right knee is pain-free and high functioning. There has been no new injury accident or trauma. She describes for me the unpleasant sensation of needing to constantly move her leg in order to stay comfortable especially while sleeping. She states that she wishes she could take her leg off and put it up on a shelf overnight. MARION DE LA CRUZ PA-C [address] [facility],[address], [place], [address], [place] [facility] 07/02/2024 11:42:28 07/23/2024 text/html Selina Moran is a 68 year old female who presents today for evaluation of her right Achilles pain. This pain has been present for 4 a couple of years now. She feels that this worsened after her right knee arthroplasty and then recently in the past couple of months this has progressively worsened. This pain can be intermittent however she does have a few days in a row where it is constant. She rates her pain as a 6/10 on average. She denies any injury. She denies any pain prior to her knee replacement. She did attend physical therapy in 2020 which was helpful.She has a medical history significant for rheumatoid arthritis on Enbrel. STEPHANIE KAPOOR PA-C [address], [place], [address], [place] [facility] 07/23/2024 11:20:51 08/13/2024 text/html Selina Moran is a 68 year old female who presents today for evaluation of her right Achilles pain. She has some improvements in her symptoms since wearing the cam boot however still has ongoing discomfort. Her pain is improved with rest and is really only worsened with specific footwear. From 07/23/24 (TK): This pain has been present for 4 a couple of years now. She feels that this worsened after her right knee arthroplasty and then recently in the past couple of months this has progressively worsened. This pain can be intermittent however she does have a few days in a row where it is constant. She rates her pain as a 6/10 on average. She denies any injury. She denies any pain prior to her knee replacement. She did attend physical therapy in 2020 which was helpful.She has a medical history significant for rheumatoid arthritis on Enbrel. STEPHANIE KAPOOR PA-C [address], [place], [address], [place] [facility] 08/13/2024 13:01:44 OBGyn Episode No OBEpisode recorded.
[2024-12-15 17:47] LABS: Baso%MD 0.6 %; Eos%MD 2.4 %; Hematocrit 35.2 % (37.0-47.0); Hemoglobin 11.7 g/dl (12.0-16.0); IG%MD 0.2 %; Lymph%MD 31.3 %; Mean Corpuscular HGB Conc 33.2 g/dl (31.0-35.0); Mean Corpuscular Hemoglobin 26.8 pg (27.0-33.0); Mean Corpuscular Volume 80.7 fL (80.0-98.0); Mean Platelet Volume 11.1 fL (9.4-12.3); Mono%MD 6.4 %; Neut%MD 59.1 %; Platelet Count 272 X10*3/uL (160-400); Red Blood Count 4.36 X10*6/uL (4.20-5.50); Red Cell Distribution Width 14.4 % (11.0-16.0); White Blood Count 4.7 X10*3/uL (4.8-10.8)
[2024-12-15 18:10] LABS: Alanine Aminotransferase 13 U/L (0-31); Aspartate Amino Transferase 25 U/L (5-31); C Reactive Protein 0.81 mg/dL (< or = 0.50); Estimated Glomerular Filt Rate > 60
[2024-12-15 18:31] LABS: Erythrocyte Sedimentation Rate 51 MM/HR (0-20)
[2024-12-15 18:54] LABS: Band Neutrophils Percent 0 % (3-5); Basophils Percent Manual 1 % (0-2); Eosinophils Absolute Manual 0.1 X10*3/uL (0.0-0.4); Eosinophils Percent Manual 3 % (0-4); Lymphocytes Absolute Manual 1.7 X10*3/uL (1.2-4.9); Lymphocytes Percent Manual 36 % (20-40); Monocytes Absolute Manual 0.1 X10*3/uL (0.1-1.2); Monocytes Percent Manual 3 % (2-11); Neutrophils Absolute Manual 2.7 X10*3/uL (2.0-8.3); Neutrophils Percent Manual 57 % (45-73); RBC Morphology NORMAL
[2024-12-15 18:55] LABS: Large Platelet PRESENT; Platelet Estimate NORMAL (NORMAL); Platelet Morphology Comment NOTED
[2024-12-16 05:01] LABS: HBS Num1 0.01 mIU/mL (0-7.99); HBc Num1 0.22 S/CO (0.00-0.79); Hepatitis B Core Antibody Nonreactive (Nonreactive); Hepatitis B Surface Antigen Negative (Negative); ~HepC Num1 0.17 S/CO (0.00-0.79); ~Hepatitis B Surface Antibody NONREACTIVE (Nonreactive); ~Hepatitis C Antibody Nonreactive (Nonreactive)
== END 2024-12-15 07:57 | disposition home or self-care (01) ==
LOC: HO.HKASLDS 07:56
PROVIDERS: PCP Internal Medicine; Visit Provider Internal Medicine Rheumatology
DX: M05.9 Rheumatoid arthritis with rheumatoid factor, unspecified (principal); Z79.899 Other long term (current) drug therapy
CPT/HCPCS: 36415; 82565; 84450; 84460; 85007; 85027; 85652; 86140; 86704; 86706; 86803; 87340; 99212

== ENCOUNTER 2025-03-17 09:31 | Outpatient (REF) | payer MEDICARE, OTHER, SELFPAY ==
[2025-03-17 13:57] LABS: MANUAL DIFF FLAG NO
[2025-03-17 14:08] LABS: Hematocrit 34.0 % (37.0-47.0); Hemoglobin 11.3 g/dl (12.0-16.0); Imm Gran Abs Auto 0.01 X10*3/uL (0.00-0.03); Imm Gran Pct Auto 0.3 % (0.0-0.4); Lymphocytes Absolute Auto 1.6 X10*3/uL (1.2-4.9); Mean Corpuscular HGB Conc 33.2 g/dl (31.0-35.0); Mean Corpuscular Hemoglobin 26.1 pg (27.0-33.0); Mean Corpuscular Volume 78.5 fL (80.0-98.0); NRBC Abs Auto 0.000 X10*3/uL (0.0-0.012); NRBC Pct Auto 0.0 /100WBC (0.0-0.2); Platelet Count 297 X10*3/uL (160-400); Red Blood Count 4.33 X10*6/uL (4.20-5.50); White Blood Count 3.7 X10*3/uL (4.8-10.8)
[2025-03-17 14:17] LABS: Alanine Aminotransferase 9 U/L (0-31); Aspartate Amino Transferase 21 U/L (5-31); Estimated Glomerular Filt Rate > 60
[2025-03-20 08:14] LABS: TS Negative Control Passed; TS Panel A 0; TS Panel B 0; TS Positive Control Passed; TSpotTB Negative (Negative)
== END 2025-03-17 09:32 | disposition home or self-care (01) ==
LOC: HO.HKASLDS 09:31
PROVIDERS: PCP Internal Medicine; Visit Provider Internal Medicine Rheumatology
DX: M05.9 Rheumatoid arthritis with rheumatoid factor, unspecified (principal); Z79.899 Other long term (current) drug therapy; Z11.7 Encounter for testing for latent tuberculosis infection
CPT/HCPCS: 36415; 82565; 84450; 84460; 85025; 85652; 86140; 86481; 99212

== ENCOUNTER 2025-03-17 09:31 | Outpatient (AMB) | payer MEDICARE, OTHER, SELFPAY ==
[2025-03-17 09:28] VITALS: BP 120/80; PULSE 88; O2SAT 98; BMI 37.5
--- NOTE | 2025-03-17 09:28 | A.OFFVIS_ITS ---
Vital Signs 03/17/25 09:28 Height 5 ft Weight 192 lb BMI 37.5 BP 120/80 Blood Pressure Location Rt brachial Position Sitting Pulse 88 Pulse Source Pulse Oximeter Pulse Oximetry (%) 98 Oxygen Delivery Method Room Air Intake Visit Reasons: 3 Months Intake Note: Patient is here for follow up on RA. Accompanied by: Self / Same As Patient Allergies amoxicillin Allergy (Intermediate, Verified 12/15/24 08:02) Rash HPI HPI 3 Months: Details: She was off of enbrel for 4 weeks prior to left wrist surgery 2 weeks ago to remove nicole, which was placed after a fracutre 2/2 fall. She resumed enbrel a week ago. SHe has morning stiffness. She avoided tylenol and ibuprofen per recommendations from orthopedic surgeon. [facility] Medical History (Updated 03/17/25 @ 10:15 by Arley Matthew MD) Presence of surgical screw in left hand Hypovitaminosis D nursing home current use of immunosuppressive drug Osteoarthritis of left knee GERD (gastroesophageal reflux disease) Depression Chronic persistent hepatitis History of positive PPD History of wrist fracture Osteoporosis Seropositive rheumatoid arthritis Surgical History Hx of hand surgery H/O total knee replacement Social History Household Members Other:: Living with sister Housing: House Are you a primary home care liaison to a significant other at home: Yes Do you presently have visiting nurse or other home services: No 75 years or older and lives alone: No Alcohol intake: never Patient Tobacco Use Status: Never used Tobacco e-Cigarette/Vaping Use: Never Used service: No Current occupational status: retired Physical Exam Vital Signs: Last Vital Signs Pulse 88 03/17/25 09:28 BP 120/80 03/17/25 09:28 Pulse Ox 98 03/17/25 09:28 Oxygen Delivery Method Room Air 03/17/25 09:28 BMI result Body Mass Index 37.5 Const Other: General: Comfortable CVS: RRR Respiratory: clear to auscultation bilaterally. Good respiratory effort Skin: No lesions seen MSK: Volar subluxation of MCPs. Synovitis and tenderness of right MCPs. No PIP tenderness. No wrist tenderness. Normal range of motion of upper extremity and lower extremities. No MTP tenderness. She has a large scar that is healing well on left dorsal wrists extending to forearm. Assessment & Plan Assessment & Plan (1) Seropositive rheumatoid arthritis: Comment: Flaring off of Enbrel, which was held due to left wrist surgery. Wound is healing well without any sign of infection. She has been back on Enbrel for 1 week. We discussed treating current flare with prednisone course. Rheumatology history. Seropositive RA. History of prior use of methotrexate. Enbrel started 2012 till present. 06/30: R 3- MCP implants. Fused left wrist before 2019. 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 (current) drug therapy Category: Medical Plan: As above Orders: Orders Complete Blood Count Auto Diff Today Z79.899 - Other care home (current) drug therapy Creatinine Today Z79.899 - Other care home (current) drug therapy C Reactive Protein Today Z79.899 - Other care home (current) drug therapy Erythrocyte Sedimentation Rate Today Z79.899 - Other 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 Take prednisone with food. 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
--- OUTSIDE RECORDS SUMMARY | 2025-03-17 09:53 | XMS_ITS ---
Author Name [facility] Organization Unknown History of Medication Use Medication Directions Dispensed Refills Start Date End Date [facility] clindamycin HCl 300 mg capsule TAKE 2 [...] A DAY NEEDED FOR MUSCLE SPASMS active diclofenac 1 % topical gel APPLY 2 GRAMS TO THE AFFECTED AREA S) BYB TOPICAL ROUTE 4 TIMES PER DAY active Enbrel SureClick 50 mg/mL (1 mL) subcutaneous pen injector 1 mL every week by sub-q route. active loteprednol etabonate 0.5 % eye drops,suspension INSTILL 1 DROP IN EACH EYE TWICE DAILY active meloxicam 15 mg tablet TAKE ONE [...] Problem Type Date of Resoluti on Source Ankle pain active 2024-08-13 ProblemAct E[facility]_AON ECT Spasm active 2022-11-22 ProblemAct [facility] History of right total knee replacement active 2023-04-29 ProblemAct ENS_AONECT Postoperative pain active 2022-11-22 ProblemAct ENS_AONECT Right Achilles tendinitis active 2024-07-23 ProblemAct ENS_AONECT Encounters Encounter Type Encounter Reason Primary Diagnosis Location Date Ambulatory [facility] 02/01/2025 Ambulatory [facility] 01/29/2025 Ambulatory [facility] 01/29/2025 Ambulatory [facility] 01/08/2025 Ambulatory [facility] 12/18/2024 Ambulatory [facility] 12/04/2024 Ambulatory [facility] 11/09/2024 Ambulatory [facility] 10/16/2024 Ambulatory [facility] 10/05/2024 Ambulatory [facility] 09/11/2024 Ambulatory [facility] 08/28/2024 Ambulatory [facility] [place] 08/14/2024 Ambulatory [facility] [place] 08/13/2024 Ambulatory [facility] [place] 08/08/2024 Ambulatory [facility] [place] 08/07/2024 Ambulatory [facility] 07/24/2024 Ambulatory [facility] 07/23/2024 Ambulatory [facility] 07/23/2024 Ambulatory [facility] [place] 07/23/2024 Ambulatory [facility] [place] 07/23/2024 Ambulatory [facility] [place] 07/02/2024 Ambulatory [facility] [place] 07[facility]02/2024 Ambulatory [facility] [place] 07/02/2024 Ambulatory [facility] [place] 07/02/2024 Ambulatory [facility] [place] 07/02/2024 Ambulatory [facility] [place] 03/08/2024 Ambulatory [facility] [place] 02/02/2024 Ambulatory [facility] [place] 11/21/2023 Ambulatory [facility] [place] 11[facility]20/2023 Ambulatory [facility] [place] 11/20/2023 Ambulatory [facility] [place] 11/20/2023 Ambulatory [facility] [place] 04/29/2023 Ambulatory [facility] [place] 04/29/2023 Ambulatory [facility] [place] 03/28/2023 Ambulatory [facility] [place] 03/28/2023 Care Team Organization Name Specialty Phone Email Start Date End [facility] te [facility] Heather Luke Primary Care 08/20/2022
--- OUTSIDE RECORDS SUMMARY | 2025-03-17 09:53 | XMS_ITS | Clinical Summary ---
Author Organization [facility] [address] [facility] Address [address] [place] [address] Phone Care Team Providers Care Induction Furnace Operator Name Role Phone Heather Luke MD Primary Care Provider [phone] Allergies Active Allergy Reactions Criticality Noted Date Comments Amoxicillin GI intolerance Low 03/18/2020 C. Difficile colitis; serious, required hospitalization Medications cholecalciferol (VITAMIN D-3) 50 mcg (2,000 unit) capsule TAKE ONE CAPSULE BY MOUTH EVERY DAY 10/31/2023 Active etanercept (EnbreL SureClick) 50 mg/mL (1 mL) injection pen Inject 50 mg as directed every 7 days. 08/09/2021 Active venlafaxine XR (EFFEXOR-XR) 150 mg 24 hr capsule Take 1 capsule (150 mg total) by mouth 2 (two) times a day. 180 capsule 1 12/08/2024 Active omeprazole (PriLOSEC) [address] capsule Take 1 capsule (20 mg total) by mouth 2 (two) times a day. 180 capsule 1 12/08/2024 Active ibuprofen (ADVIL,MOTRIN) 600 mg tablet Take 1 tablet (600 mg total) by mouth 3 (three) times a day with meals. 15 tablet 02/25/2025 Active oxyCODONE (ROXICODONE) 5 mg immediate release tablet Take 1 tablet (5 mg total) by mouth every 6 (six) hours if needed for severe pain for up to 12 doses. Max Daily Amount: 20 mg 12 tablet 02/25/2025 Active Active Problems Problem Noted Date Diagnosed [...] Major depressive disorder, r ecurrent episode, mild ([facility] V24) 06/21/2015 Assessment & Plan (12/08/2024 11:58 AM EDT): Seropositive rheumatoid arth ritis ([facility] V24, [facility] V28) 05/18/2015 Overview (07/24/2024): 2013 - [...] required surgery. Revised 2010 Chronic persistent hepatitis ([facility] V24, [facility] V28) 08/27/2005 Overview (07/24/2024): Autoimmune hepatitis, + liver biopsy. On azathioprine ~[id number] Esophageal reflux 08/27/2005 Encounters Date Type Department Care Team Description 03/08/2025 8:30 AM EDT Office Visit Orthopedic Surgery [address] [phone] Naomi Bansal PA Surgery follow-up (Primary Dx) 02/25/2025 11:53 AM EDT Anesthesia Event [facility] [place] [address] [place] [phone] Laureano Paez MD Barnes, Tyanna R, CRNA 02/25/2025 11:33 AM EDT - 02/25/2025 1:[address] [facility] [place] [address] [place] [phone] Joaquina Flores MD REMOVAL IMPLANT- left wrist fusion plate [[id number] (CPT )] 02/25/2025 10:52 AM EDT - 02/25/2025 3:31 PM EDT Hospital Encounter [facility] [place] [address] [place] [phone] Joaquina Flores MD Pain from implanted hardware, sequela Discharge Disposition: Home or Self Care 02/15/2025 9:45 AM EDT Consult Orthopedic Surgery [address] [phone] Joaquina Flores MD Pain from implanted hardware, sequela (Primary Dx) 02/08/2025 Telephone Orthopedic Surgery [facility] [address] [phone] Romana Estrada Surgery reschedule to 02/25/2025 (No GISELA Fischer. Dr Flores Surgery) 02/04/2025 Telephone Orthopedic Surgery [place] [phone] [phone] Evie Simmons MA Surgery 01/07/2025 Telephone Orthopedic Surgery [facility] [address] [phone] Evie Simmons MA Surgery from Last 3 Months Immunizations Name Administration [...] Left hardware in place; 4-5 years ago(2020?) KNEE ARTHROPLASTY Right WRIST SURGERY 02/25/2025 Left Removal of the wrist fusion plate Medical History Medical History Date Comments Esophageal reflux Chronic persistent hepatitis (CMS/HCC V24, CMS/HCC V28) 08/27/2005 once from medicine 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 V24, [facility] V28) 05/18/20152012 - Enbrel started 06/30 : R 3- MCP implants Anxiety 01/14/2014 PONV (postoperative nausea a nd vomiting) Joint pain Family History Medical History Relation Name Comments [...] Sign Reading Time Taken Comments Blood Pressure 109/62 02/25/2025 3:01 PM EDT Pulse 93 02/25/2025 3:01 PM EDT Temperature 36.6 C (97.9 F) 02/25/2025 3:01 PM EDT Respiratory Rate 18 02/25/2025 3:01 PM EDT Oxygen Saturation 93% 02/25/2025 3:01 PM EDT Inhaled Oxygen Concentration - - Weight 68 kg (150 lb) 03/08/2025 8:21 AM EDT Height 152.4 cm (5') 03/08/2025 8:21 AM EDT Body Mass Index 29.29 03/08/2025 8:21 AM EDT Plan of Treatment Upcoming Encounters Date Type Department Care Team (Late st Contact Info) Description 04/19/2025 9:30 AM EDT Office Visit Orthopedic Surgery - [place] [address] [place] [phone] Naomi Bansal PA [address] [place] [phone] 06/11/2025 9:30 AM EDT Office Visit Adult Medicine [facility] [address] [place] [phone] Princess Pabon PA [address] [place] [address] Health Maintenance Due Date Last Done Comments Zoster Vaccines (1 of 2) 2004 COVID-19 Vaccine (3 - Pfizer risk series) 06/02/2021 05/05/2021, 04/14/2021 Social Influencers of Health Screening 07/21/2022 Pneumococcal Vaccine: 50+ Years (3 of 3 - PCV20 or PCV21) 06/06/2023 06/06/2018, 04/25/2017 Influenza Vaccine (#1) 2025 , 04/27/2019, 06/06/2018, Additional history exists Colorectal Cancer Screening: Colonoscopy 05/12/2025 05/12/2020 Medicare Annual Wellness Visit 12/08/2025 12/08/2024 Falls Risk Assessment 02/25/2026 02/25/2025 , 12/08/2024, 09/25/2023 Breast Cancer Screening 08/26/2026 08/26/19, 08/15/2023, 08/07/2022, Additional history exists Cholesterol Screening (Lipid Panel) 03/21/2028 03/21/2023 DTaP,Tdap,and Td Vaccines (3 - Td or Tdap) 04/27/2029 04/27/2019, 12/06/2008 RSV Immunization Adult Patients (1 - 1-dose 75+ series) 2029 Osteoporosis Screening (Bone Density Screening) 10/08/2033 10/08/2023, 07/25/2017 Hepatitis C Screening Completed 01/18/1998 Depression Screening Completed 12/08/2024, 06/08/20 24 HIB Vaccines Aged Out No longer eligi [...] Procedure Name Priority Date/Time Associated Diagnosis Comments CULTURE TISSUE WITH GRAM STAIN Routine 02/25/2025 1:24 PM EDT Pain from implanted hardware, sequela TISSUE EXAM Routine 02/25/2025 12:48 PM EDT Pain from implanted hardware, sequela NV REMOVAL OF IMPLANT DEEP 02/25/2025 11:52 AM EDT Pain from implanted hardware, sequela Case Notes MINI C-ARM, presurgical block, [place] wrist fusion plate set TH AN NERVE BLOCK SUPRACLAVICULAR (NO CHARGE) Routine 02/25/2025 11:40 AM EDT TH AN NERVE BLOCK SUPRACLAVICULAR (CHARGE) Routine 02/25/2025 11:40 AM EDT MG MAMMO DIGITAL SCREENING W SAUL BILAT Routine 08/26/2024 9:56 AM EST Encounter for screening mammogram for breast cancer HM DEPRESSION SCREENING Routine 06/08/2024 DXA BONE DENSITY STUDY 1+ SITS AXIAL SKEL Routine 10/08/2023 11:42 AM EST Age-related osteoporosis without current pathological fracture FALLS RISK ASSESSMENT Routine 09/25/2023 LIPID PANEL Routine 03/21/2023 COLONOSCOPY Routine 05/12/2020 HEPATITIS C SCREENING Routine 01/18/1998 from Last 3 Months or Most Recently Relevant to Health Maintenance Results * Culture tissue with gram stain (02/25/2025 1:24 PM EDT) Culture, Tissue No growth aerobically and anaerobically at 5 days. 03/02/2025 7:[address] [facility] Gram Stain Result No polymorphonuclear leukocytes, No epithelial cells, and No organisms noted 03/02/2025 7:[address] [facility] Tissue Structure of left wrist region / Unknown 02/25/2025 1:24 PM EDT 02/25/2025 3:26 PM EDT Joaquina Flores MD LAB MICROBIOLOGY - GENERAL OR DERABLES Final Result [facility] [address] [place] [address], * Tissue exam (02/25/2025 12:48 PM EDT) Final Diagnosis Wrist, Left, tissue from plate: Fibrous synovial tissue with chronic inflammation, necrobiotic granulomas, and focal metallosis. No infectious etiology identified. 3:[address] [facility] Comment No infectious organisms are identified on routine stains. Because of the presence of necrotic granuloma and inflammation, AFB, GMS, and Gram stains are performed and are interpreted as negative with appropriate controls. Please also see culture results. 3:[address] [facility] Gross Description A. Wrist, Left, tissue from plate: Labeled left wrist . Received in formalin is a 3.0 x 1.5 x 0.8 cm aggregate of rubbery, gilbert-white to pink tissue fragments. The tissue contains multiple chel/clips. The specimen is sectioned and medical service representative sections are submitted in one cassette, multiple pieces. TS 3:[address] [facility] Disclaimer NOTE: The immunohistochemical tests and in situ hybridization tests were developed and their performance characteristics were determined by [facility]. They have not been cleared or approved by the U.S. Food and Drug Administration. The FDA has determined that such clearance or approval is not necessary. These tests are used for clinical purposes. They should not be regarded as investigational or for research. This laboratory is certified under the Clinical Laboratory Improvement Amendments of 1988 (CLIA) as qualified to perform high complexity clinical laboratory testing. (controls appropriate) Unless otherwise specified, all tissue is 10% NB formalin fixed and paraffin embedded. 3:[address] [facility] Tissue Structure of left wrist region / Unknown 02/25/2025 12:48 PM EDT 02/25/2025 4:00 PM EDT Joaquina Flores MD LAB PATHOLOGY ORDERABLES Yennifer de la garza Result [facility] [address] [place] [address], * TH AN NERVE BLOCK SUPRACLAVICULAR (CHARGE), TH AN NERVE BLOCK SUPRACLAVICULAR (NO CHARGE) (02/25/2025 11:40 AM EDT) Narrative Laureano Paez MD - 02/25/2025 11:40 AM EDT Laureano Paez MD 02/25/2025 11:45 AM Peripheral Block Patient location during procedure: holding area Start time: 02/25/2025 11:40 AM End time: 02/25/2025 11:44 AM Reason for block: at surgeon's request Staffing Performed: anesthesiologist Anesthesiologist: Laureano Paez MD Preanesthetic Checklist Completed: patient identified, IV checked, site marked, risks and benefits discussed, surgical consent, monitors and equipment checked, pre-op evaluation and timeout performed Peripheral Block Patient position: supine Prep: ChloraPrep Patient monitoring: heart rate, consumer educator and continuous pulse ox Block type: supraclavicular Laterality: left Injection technique: single-shot Guidance: nerve stimulator and ultrasound guided Local infiltration: lidocaine Needle Needle type: short-bevel Needle gauge: 20 G Needle length: 9 cm Needle localization: ultrasound guidance Medications Administered ropivacaine (NAROPIN) injection 0.5 % - infiltration 25 mL - 02/25/2025 11:40:00 AM Assessment Injection assessment: negative aspiration for heme, no paresthesia on injection, incremental injection with negative aspiration q 5ml and local visualized surrounding nerve on ultrasound Paresthesia pain: none Heart rate change: no Slow fractionated injection: no Additional Notes CLONIDINE 100mcg added to injection solution For post-op pain management us Laureano Paez MD ANESTHESIA ORDERABLES Final Re sult * MG Mammo Digital Screening w Saul [...] is recommended in 1 year. Mammo Location: [facility], [address] [place] [address], [address], . -------- FINAL REPORT -------- Dictated By: Travis Somers Dictated Date: 08/26/2024 16:40 ET Assigned Physician: Travis Somers Reviewed and Electronically Signed By: Travis Somers Signed Date: 08/26/2024 16:45 ET Workstation ID: [id number] Transcribed By: Self Edit Transcribed Date: 08/26/2024 16:40 ET Narrative 08/26/2024 4:45 PM EST STUDY: Bilateral screening mammography with tomosynthesis and CAD TECHNIQUE: Bilateral full-field digital screening mammography is obtained and read in conjunction with computer-aided detection. Tomosynthesis as well as 2-D C view imaging were obtained. COMPARISON: Comparison made to multiple prior, most recent August 15, 2023, and most remote July 28, 2015. RIGHT BREAST: History of previous excisional biopsy and needle core [...] is recommended in 1 year. Mammo Location: [facility], [address] [place] [address], [id number], . -------- FINAL REPORT -------- Dictated By: Travis Somers Dictated Date: 08/26/2024 16:40 ET Assigned Physician: Travis Somers Reviewed and Electronically Signed By: Travis Somers Signed Date: 08/26/2024 16:45 ET Workstation ID: [id number] Transcribed By: Self Edit Transcribed Date: 08/26/2024 16:40 ET Heather Luke MD IMG BI PROCEDURES Final Result * Depression Screening (06/08/2024) Depression Screening Abstracted Historical Provider HEALTH MAINTENANCE Final Result * DXA BONE DENSITY STUDY 1+ SITS AXIAL SKEL (10/08/2023 11:42 AM EST) Anatomical Region Laterality Modality Bone Densitometr y 09/25/2023 10:0 7 AM EST Narrative 10/09/2023 4:43 PM EST BONE DENSITY Lumbar Spine T-score is -3.2 [...] compared to most recent bone density examination Confidence level is +/-95%. Impression: Based on the World Health Organization criteria, Jacklyn Moran should be classified as having osteoporosis. The [facility] Department of Internal Medicine recommends using National [...] Based on the World Health Organization criteria, Jacklyn Moran should beclassified as having osteoporosis. The [facility] Department of Internal Medicine recommendsusing National Osteoporosis [...] or over-estimation of fracture risk by FRAX. Result [facility] Princess HIGGINS IMG DXA PROCEDURES Final Resu lt * Falls Risk Assessment (09/25/2023) [facility] Falls Risk Assessment Abstracted Result [facility] Provider HEALTH MAINTENANCE Final Result * (ABNORMAL) Lipid panel (03/21/2023) [facility] LDL/HDL Ratio 4 0 - 4 Triglycerides 119 0 - 150 mg/dL Cholesterol 222(A) 0 - 200 mg/dL HDL 50 >=40 mg/dL LDL Cholesterol 149(A) 0 - 100 mg/dL Blood Venous blood specimen / Unknown Result [facility] Provider LAB BLOOD ORDERABLES Yennifer l Result * Colonoscopy (05/12/2020) [facility] Colonoscopy no interpretation , abstracted Anatomical Region Laterality Modality Other Result [facility] Provider HEALTH MAINTENANCE Final Result * Hepatitis C Screening (01/18/1998) [facility] Hepatitis C Screening Abstracted Result [facility] Provider HEALTH MAINTENANCE Final Result from Last 3 Months or Most Recently Relevant to Health Maintenance Insurance MEDICARE [facility] Advance Directives Documents on File Type Date Recorded 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 Do not modify or discontinue any currently active code status orders. Care Teams Induction Furnace Operator Relationship Specialty Start Date End Date Heather Luke MD [address] [place] [id number] PCP - General Internal Medicine 05/27/15
--- OUTSIDE RECORDS SUMMARY | 2025-03-17 09:53 | XMS_ITS | Clinical Summary ---
Author Organization [facility] Address [address] [place] [address] Care Team Providers Care Crop Picker Name Role Phone Heather Luke MD Primary Care Provider [phone] Allergies Active Allergy Reactions Criticality Noted Date Comments Amoxicillin 04/20/2022 Medications Medication Sig Dispensed Refills Start Date End Date Status omeprazole (PriLOSEC) 20 MG capsule Take 20 mg by mouth 2 (two) times a day. 0 03/30/2022 Active ergocalciferol (VITAMIN D2) capsule 06383 units TAKE ONE CAPSULE BY MOUTH EVERY [...] season) 2024 05/05/2021, 04/14/2021 Influenza Vaccine (#1) 2025 , 04/27/2019, 06/06/2018, Additional history exists DTap [...] age to complete this topic Care Teams Crop Picker Relationship Specialty Start Date End Date Heather Luke MD PCP - General Internal Medicine 04/20/22
== END 2025-03-17 10:15 | disposition home or self-care (01) ==
LOC: HO.RHES 09:31
PROVIDERS: PCP Internal Medicine; Visit Provider Internal Medicine Rheumatology
DX: M05.9 Rheumatoid arthritis with rheumatoid factor, unspecified (principal); Z79.899 Other long term (current) drug therapy
CPT/HCPCS: 99214; G2211

== ENCOUNTER 2025-07-19 09:32 | Outpatient (REF) | payer MEDICARE, OTHER, SELFPAY ==
[2025-07-19 13:48] LABS: MANUAL DIFF FLAG NO
[2025-07-19 14:12] LABS: Alanine Aminotransferase 10 U/L (0-31); Aspartate Amino Transferase 20 U/L (5-31); Estimated Glomerular Filt Rate > 60
[2025-07-19 14:17] LABS: Hematocrit 35.6 % (37.0-47.0); Hemoglobin 11.5 g/dl (12.0-16.0); Imm Gran Abs Auto 0.01 X10*3/uL (0.00-0.03); Imm Gran Pct Auto 0.2 % (0.0-0.4); Lymphocytes Absolute Auto 1.5 X10*3/uL (1.2-4.9); Mean Corpuscular HGB Conc 32.3 g/dl (31.0-35.0); Mean Corpuscular Hemoglobin 26.5 pg (27.0-33.0); Mean Corpuscular Volume 82.0 fL (80.0-98.0); NRBC Abs Auto 0.000 X10*3/uL (0.0-0.012); NRBC Pct Auto 0.0 /100WBC (0.0-0.2); Platelet Count 296 X10*3/uL (160-400); Red Blood Count 4.34 X10*6/uL (4.20-5.50); White Blood Count 4.4 X10*3/uL (4.8-10.8)
[2025-07-19 15:02] LABS: Erythrocyte Sedimentation Rate 48 MM/HR (0-20)
== END 2025-07-19 09:33 | disposition home or self-care (01) ==
LOC: HO.HKASLDS 09:32
PROVIDERS: PCP Internal Medicine; Visit Provider Internal Medicine Rheumatology
DX: Z79.899 Other long term (current) drug therapy (principal)
CPT/HCPCS: 36415; 82565; 84450; 84460; 85025; 85652; 86140